=== PATIENT | male | born 1945 | race Caucasian/White ===

== ENCOUNTER → 2019-02-10 | Outpatient (CLI) | payer MEDICARE, OTHER, SELFPAY | PROVIDERS: Family Provider Internal Medicine; Visit Provider Internal Medicine | DX: R06.09 Other forms of dyspnea (principal); R07.9 Chest pain, unspecified | CPT/HCPCS: 78452; 93017; A9500; J2785 ==

== ENCOUNTER 2019-02-25 11:00 | Outpatient (CLI) | payer MEDICARE, OTHER, SELFPAY ==
--- NOTE | 2019-02-25 11:04 | XRR_ITS ---
PROCEDURE INFORMATION: Exam: XR Abdomen, 1 View Exam date and time: 02/25/2019 11:06 AM Age: 73 years old Clinical indication: Condition or disease; Other: Left ureteral stone TECHNIQUE: Imaging protocol: XR of the abdomen. Views: Frontal supine view of the abdomen. 1 View. COMPARISON: CR XR KUB [id number] 01/13/2019 7:[address] Abdomen/Pelvis Renal 51346 01/07/2019 5:48:51 AM FINDINGS: Gastrointestinal tract: Unremarkable. No bowel dilation. Vasculature: Calcified phleboliths are present in the lower pelvis bilaterally. Bones/joints: Previous CT demonstrated LEFT ureteral calculus not specifically identified on this examination. No acute abnormality identified. XR/XR KUB [id number] IMPRESSION: No acute abdominal or pelvic abnormality identified.
--- NOTE | 2019-02-25 11:09 | US_ITS ---
WS: [id number] RENAL ULTRASOUND HISTORY: RENAL AND URETERIC CALCULUS COMPARISON: None available. TECHNIQUE: 2-D and color Doppler imaging of the kidney submitted. Right kidney: 9.3 cm x 4.7 cm x 4.9 cm. Low normal size RIGHT kidney. Echogenicity is equal to the aorta. No hydronephrosis or solid mass. Co rtical cyst lower pole measures 1.7 x 1.3 x 1.6 cm. Left kidney: 11.2 cm x 4.1 cm x 5.6 cm. Normal size kidney. Cortical cyst lower pole measures 1.5 x 1.5 x 1.6 cm. Mild increased echogenicity . No solid mass. Aorta: Normal. Urinary Bladder: Nondistended. US/US renal BI* [id number] IMPRESSION: 1. No hydronephrosis. 2. Low normal size RIGHT kidney as compared to the LEFT. 3. Small bilateral renal cysts as above. No calcifications identified.
== END 2019-02-25 11:01 | disposition home or self-care (01) ==
LOC: RAD 11:02
PROVIDERS: Family Provider Internal Medicine; PCP Internal Medicine; Visit Provider Urology
DX: N28.1 Cyst of kidney, acquired (principal)
CPT/HCPCS: 74018; 76770; 81001

== ENCOUNTER 2019-09-23 11:48 | Outpatient (CLI) | payer MEDICARE, OTHER, SELFPAY ==
--- NOTE | 2019-09-23 11:45 | MR_ITS ---
WS: [id number] MRI RIGHT SHOULDER NONCONTRAST TECHNIQUE: Sagittal T2, coronal T1, T2 and proton density imaging. Axial gradient PDE imaging. CLINICAL INFORMATION: M75.91 Shoulder lesion, unspecified, right shoulder COMPARISON: None. 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 Slight subacro mial spurring. Small amount of edema at the AC joint. High-grade full-thickness tear of the supraspin atus with retraction to the level of glenohumeral joint. Associated edema. Partial intrasubstance ins ertional tear involving the infraspinatus which appears intact. No retraction. Chronic thinning of th e infraspinatus with tendinopathy. Normal teres minor. Normal subscapularis. Normal biceps tendon in the bicipital groove. Degenerative fraying of the glenoid labrum. No gross visualized labral tears. Intra-articular biceps tendon appear s intact. Normal biceps labral anchor. Axial images are degraded due to patient motion. IMPRESSION: 1. High-grade full-thickness tear involving the supraspinatus with retraction of the tendon to the l evel of the glenohumeral joint. Soft tissue edema. 2. Partial intrasubstance insertional tear involving the infraspinatus with tendinopathy. Chronic th inning of the infraspinatus. 3. Normal subscapularis and teres minor. 4. Advanced degenerative arthritis AC joint with loss of the subacromial space.
== END 2019-09-23 11:49 | disposition home or self-care (01) ==
LOC: RADSHAW 11:58
PROVIDERS: PCP Internal Medicine; Visit Provider Internal Medicine
DX: M75.91 Shoulder lesion, unspecified, right shoulder (principal); R60.0 Localized edema; S46.811A Strain of other muscles, fascia and tendons at shoulder and upper arm level, right arm, initial encounter; M13.811 Other specified arthritis, right shoulder; X58.XXXA Exposure to other specified factors, initial encounter
CPT/HCPCS: 73221

== ENCOUNTER → 2019-11-09 11:26 | Outpatient (BNVA) | payer MEDICARE, OTHER, SELFPAY | PROVIDERS: PCP Internal Medicine; Visit Provider Nurse Practitioner Family | DX: Z20.828 Contact with and (suspected) exposure to other viral communicable diseases (principal) | CPT/HCPCS: 87635 ==

== ENCOUNTER → 2019-11-25 11:55 | Outpatient (BNVA) | payer MEDICARE, OTHER, SELFPAY | PROVIDERS: PCP Internal Medicine; Visit Provider Orthopaedic Surgery | DX: Z11.59 Encounter for screening for other viral diseases (principal) | CPT/HCPCS: 87635 ==

== ENCOUNTER 2019-11-30 05:34 | Day surgery (SDC) | payer MEDICARE, OTHER, SELFPAY ==
[2019-11-27 13:44] VITALS: BMI 26.4
[2019-11-30] VITALS (7 sets, daily range): BP systolic 125–156; BP diastolic 65–83; PULSE 65–75; RESP 16–18; TEMP 36.4–36.6; O2SAT 96–100
--- NOTE | 2019-11-30 06:01 | ECG_ITS ---
[facility] Test Date: 2019-11-30 Pat Name: Donald Marquez Department: Room: Gender: Male [place] Tender: : 1945 Requested By: Norma Dyson Order Number: [id number] Krista MD: Jamaal Valdes M.D. Measurements Intervals [place] Rate: 71 P: 39 AK: 163 QRS: -20 QRSD: 114 T: 17 QT: 367 QTc: 400 Interpretive Statements SINUS RHYTHM MODERATE INTRAVENTRICULAR CONDUCTION DELAY [110+ ms QRS DURATION] No previous ECG available for comparison Electronically Signed On 11-30-2019 21:38:06 CDT by Jamaal Valdes M.D. [id number]
[2019-11-30] MEDS: acetaminophen 500 mg Tablet 1000 MG PO (06:05)
[2019-11-30] MEDS: CELEcoxib 200 mg Capsule PO (06:06)
[2019-11-30] MEDS: sodium chloride 0.9% 1,000 ML 30 ML IV (06:06)
[2019-11-30] MEDS: gabapentin 300 mg Capsule PO (06:06)
--- NOTE | 2019-11-30 06:33 | ANES.PREANE2 ---
Pre-Anesthetic Assessment Pre-Anesthetic Assessment: Height/Weight: Height 1.83 m Weight 88.451 kg Temp Pulse Resp BP Pulse Ox 97.8 F 75 18 156/83 97 11/30/19 06:00 11/30/19 06:00 11/30/19 06:00 11/30/19 06:00 11/30/19 06:00 Preop Diagnosis: Right rotator cuff tear Proposed Procedure: Operation Date: 11/30/19 07:00 Proposed Procedures p Shoulder Arthroscopy 09513 [id number] M75.101(Right) - Arpan Morton MD s Rotator Cuff Repair(Right) - Arpan Morton MD s subacromial Decompression and other indicated procedures(Right) - Arpan Morton MD Familial anesthetic complications: None Was Beta Pj taken within 24 hours: N/A Last intake: Intake NPO > 8 hrs Last Liquid Date 11/29/19 Last Solid Date 11/29/19 Social: Social History: No alcohol and No tobacco Exam: Pre-Anes Outpt Exam: alert, oriented x 3, clear to auscultation bilaterally and regular rate & rhythm Airway: Cervical ROM: WNL MP: 2 Dentition: Chipped and Other (missing teeth, fake tooth) CV/HEM: CV/HEM: CAD (stents placed 2010 - just on aspirin) and HTN Comments: < 4 METS achievable - experiences SOB Stress test last 2018 was negative for ischemia - test was performed d/t chronic fatigue GI: GI: GERD Neuropsych: 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) Anesthetic Plan: ASA status: 3 Anesthesia: General and Regional (specify below) Risk of > 500 ml blood loss (7ml/kg in children): No Meds/Allergies Current Medications: Current Medications Generic Name Dose Route Start Last Admin Trade Name Freq PRN Reason Stop Dose Admin Gabapentin 300 mg 11/30/19 05:45 11/30/19 06:06 Neurontin PO 300 mg ONCE EZRA Administration Sodium Chloride 1,000 mls @ 30 ml s/hr 11/30/19 05:45 11/30/19 06:06 Sodium Chloride 0.9% IV 12/01/19 05:44 30 mls/hr .Q24H EZRA Administration PFSH Anesthesia PFSH: Medical History ASHD (arteriosclerotic heart disease) Chronic fatigue GERD (gastroesophageal reflux disease) Hyperlipemia [place], old Renal and ureteric calculus Multi-stone former with small bilateral renal calculi and history of multiple spontaneous stone passages. Surgical History H/O percutaneous transluminal coronary angioplasty S/P colonoscopy S/P eye surgery S/P tonsillectomy Family History Other Congestive heart failure Diabetes Stroke Social History Smoking and tobacco status: former smoker Alcohol intake: never Household members: spouse Housing: House Marital status: History of recent travel: No Data Anesthesia Cardiac Studies: No Data to Display
[2019-11-30] MEDS: midazolam 1 mg/mL INJ 2 mL 2 MG IVP (06:52)
--- NOTE | 2019-11-30 06:57 | ANES.PROC ---
Anesthesia Procedures Procedure/Date: 11/30/19 Nerve Block ^: Nerve Block 1: Main Anesthesia: general anesthesia Time Out Performed: Yes Consent: requested by attending/covering physician, from patient, risks and benefits reviewed and patient agrees to proceed Nerve block location: interscalene (R) Anesthesia monitors applied: pulse oximetry, EKG and BP cuff Nerve block position: semi sitting Anesthetic Used: ropivicaine 0.5% and with decadron (4 mg) Amount of anesthesia used (mL): 20 Ultrasound used to: recognize landmarks, visualize and ID brachial plexus and visualize and ID interscalene groove Nerve Stimulator Used?: No Interscalene/Femoral BLK: 2 stimuplex 22 g needle used for position and inplane approach, visualize local anesthetic spread and no vascular puncture identified Injection: neg aspiration of heme and paresthesia +/- Patient Tolerated Procedure: well and no complications Complications: none
--- NOTE | 2019-11-30 07:05 | P.HPUD_ITS ---
Surgery/Procedure H&P Update DATE OF PROCEDURE: November 30, 2019 DATE H&P PERFORMED: 11/25/19 PREOP DIAGNOSIS: Right rotator cuff tear PLANNED PROCEDURE: Operation Date: 11/30/19 07:00 Proposed Procedures p Shoulder Arthroscopy 85337 41761 M75.101(Right) - MD sarita Ching Rotator Cuff Repair(Right) - MD sarita Ching subacromial Decompression and other indicated procedures(Right) - Arpan lorenzo MD
--- NOTE | 2019-11-30 07:05 | W.PM.OPSUD ---
Surgery/Procedure H&P Update DATE OF PROCEDURE: November 30, 2019 DATE H&P PERFORMED: 11/25/19 PREOP DIAGNOSIS: Right rotator cuff tear PLANNED PROCEDURE: Operation Date: 11/30/19 07:00 Proposed Procedures p Shoulder Arthroscopy 83917 07831 M75.101(Right) - Arpan Morton MD s Rotator Cuff Repair(Right) - MD sarita Ching subacromial Decompression and other indicated procedures(Right) - Arpan Morton MD
--- NOTE | 2019-11-30 07:54 | SUR.OPER ---
Pt's left hip/buttock area bruised. Pt stated he had fell. 0017 - Pt's Vicky notified of surgery start on her cell phone.
--- NOTE | 2019-11-30 08:59 | P.OP_ITS ---
Operative Report Date of procedure: November 30, 2019 Pre-op Diagnosis: Right rotator cuff tear Post-op diagnosis: same Post-op Findings: Right rotator cuff tear, impingement Procedure Done: Arthroscopic repair right rotator cuff, arthroscopic right subacromial decompression Implants: Martinez [employer]hew Helicoil 4.5 mm anchors x2, [employer] Helicoil knotless 5.0 mm anchors x2 Pathology: none sent Surgeon: Arpan Morton Anesthesia: General and Nerve Block (Interscalene) Estimated blood loss (mL): 10 Complications: None Findings: Patient had a large tear of the supraspinatus tendon beginning at the bicipital groove extending approximately 2 cm posteriorly with approximately 2 cm of tendinous retraction. Bone and tendon quality was excellent. Had prominent anterior spurring of his acromion. No degenerative changes were seen at the acromioclavicular joint. Disposition: PACU Procedure: The patient was taken to the operating room after an interscalene block was provided by anesthesia. He was given 2 g of Ancef and positioned the lateral position with his right arm in 15 pounds of traction. He was prepped and draped in the usual fashion. A timeout was performed. A posterior portal was made 2 cm inferior and medial to the posterior corner of the acromion. A scope cannula and trocar driven into the glenohumeral joint. Diagnostic portion of arthroscopy was performed. The rotator cuff tear identified. They scope cannula was then directed to the subacromial space. A lateral and anterior portal was opened up with a scalpel blade. Patient had a very tight subacromial space that made visualization difficult owing to anterior spurs. A 5 5 acromionizer was introduced and approximately 5 mm of anterior and inferior acromion removed. Hemostasis was provided with the Martinez [employer] Nephew Werewolf probe. Attention was then focused on the rotator cuff. Utilizing a grasper from the lateral portal the rotator cuff could be mobilized to the tuberosity and decision was made to proceed with a double row repair. An acromion urgency was used to debride the greater tuberosity. A 4.5 mm Martinez [employer] Nephew Helicoil anchor was placed in the posterior medial footprint. The Martinez and Nephew FirstPass suture passer was used to shuttle one limb of Ultratape fluoroscopy the posterior medial rotator cuff approximately 6 mm from the tendon edge. This was repeated approximately 5 mm anteriorly with the second to the tape. A second anchor was placed in the anterior medial footprint and the 2 Ultratape sutures passed in an identical fashion. Through the lateral cannula a helical oil knotless anchor was placed on the lateral edge of the footprint just post erior to the first anchor. One suture from each medial row anchor was passed into the anchor and that implant placed. The 2 free sutures were then passed through a anterior and lateral Martinez [employer] Nephew Helicoil knotless anchor, completing the lateral row repair. As tendon and bone quality was very good a bio inductive implant was not utilized. Portals were closed with 3-0 Prolene. Sterile dressings were applied. The patient was placed in a sling. He was extubated and taken to recovery room in stable condition.
--- NOTE | 2019-11-30 10:15 | ANE.PACU2 ---
Inpatient post-anesthesia follow up: Airway intact: Yes Vital signs: Temperature 97.6 F Pulse Rate 68 Respiratory Rate 18 Blood Pressure 127/67 Pulse Oximetry 97 Oxygen Delivery Me thod Room Air Oxygen Flow Rate 8 Fraction of Inspir ed Oxygen Hydration adequate: Yes Nausea and vomiting: No Pain level: 1 Mental status: Baseline
== END 2019-11-30 10:15 | disposition home or self-care (01) ==
PROVIDERS: PCP Internal Medicine; Visit Provider Orthopaedic Surgery
PROC: (CPT 29805; principal; 2019-11-30 07:00)
PROC: (CPT 29826; 2019-11-30 07:00)
DX: M75.101 Unspecified rotator cuff tear or rupture of right shoulder, not specified as traumatic (principal); M25.811 Other specified joint disorders, right shoulder; I25.10 Atherosclerotic heart disease of native coronary artery without angina pectoris; Z95.5 Presence of coronary angioplasty implant and graft; I10 Essential (primary) hypertension; K21.9 Gastro-esophageal reflux disease without esophagitis; Z86.73 Personal history of transient ischemic attack (TIA), and cerebral infarction without residual deficits; E78.5 Hyperlipidemia, unspecified; I25.2 Old myocardial infarction; Z87.891 Personal history of nicotine dependence; Z79.82 Long term (current) use of aspirin
CPT/HCPCS: 29826; 29827; 12345; 64415; 76942; 93005; 96365; 96374; C1713; J0690; J1100; J2250; J2405; J2704; J2710; J2795; J3010; J3490; J7030

== ENCOUNTER 2019-12-21 10:36 | Outpatient (RCR) | payer MEDICARE, OTHER, SELFPAY | END 2020-01-11 23:59 | disposition home or self-care (01) | LOC: SPT 10:36 | PROVIDERS: PCP Internal Medicine; Referring Provider Orthopaedic Surgery; Visit Provider Orthopaedic Surgery | DX: Z47.89 Encounter for other orthopedic aftercare (principal); Z98.890 Other specified postprocedural states | CPT/HCPCS: 97110; 97161 ==

== ENCOUNTER 2020-01-12 06:00 | Outpatient (RCR) | payer MEDICARE, OTHER, SELFPAY | END 2020-02-11 23:59 | disposition home or self-care (01) | LOC: SPT 06:00 | PROVIDERS: PCP Internal Medicine; Referring Provider Orthopaedic Surgery; Visit Provider Orthopaedic Surgery | DX: Z47.89 Encounter for other orthopedic aftercare (principal) | CPT/HCPCS: 97110 ==

== ENCOUNTER 2020-02-12 06:00 | Outpatient (RCR) | payer MEDICARE, OTHER, SELFPAY | END 2020-03-13 23:59 | disposition home or self-care (01) | LOC: SPT 06:00 | PROVIDERS: PCP Internal Medicine; Referring Provider Orthopaedic Surgery; Visit Provider Orthopaedic Surgery | DX: Z47.89 Encounter for other orthopedic aftercare (principal) | CPT/HCPCS: 97110 ==

== ENCOUNTER 2020-02-24 08:07 | Outpatient (CLI) | payer MEDICARE, OTHER, SELFPAY ==
--- NOTE | 2020-02-24 08:30 | XR_ITS ---
WS: [id number] KUB, 02/24/2020 Clinical Data: RENAL AND URETERIC CALCULUS Comparison: KUB, 02/25/2019. Findings: No abnormal intraabdominal masses or calcifications are seen. There is no dilatated small bowel or ev idence of obstruction. There is fecal material throughout colon. The bladder is partly full. XR/XR KUB [id number] Impression: Negative KUB.
== END 2020-02-24 08:08 | disposition home or self-care (01) ==
LOC: RAD 08:12
PROVIDERS: PCP Internal Medicine; Visit Provider Nurse Practitioner Family
DX: N20.2 Calculus of kidney with calculus of ureter (principal)
CPT/HCPCS: 74018; 81003

== ENCOUNTER 2020-03-14 06:00 | Outpatient (RCR) | payer MEDICARE, OTHER, SELFPAY | END 2020-04-10 23:59 | disposition home or self-care (01) | LOC: SPT 06:00 | PROVIDERS: PCP Internal Medicine; Referring Provider Orthopaedic Surgery; Visit Provider Orthopaedic Surgery | DX: Z48.89 Encounter for other specified surgical aftercare (principal) | CPT/HCPCS: 97110 ==

== ENCOUNTER 2020-04-11 06:00 | Outpatient (RCR) | payer MEDICARE, OTHER, SELFPAY | END 2020-04-19 15:54 | disposition home or self-care (01) | LOC: SPT 06:00 | PROVIDERS: PCP Internal Medicine; Referring Provider Orthopaedic Surgery; Visit Provider Orthopaedic Surgery | DX: Z47.89 Encounter for other orthopedic aftercare (principal) | CPT/HCPCS: 97110 ==

== ENCOUNTER 2020-05-12 15:09 | Outpatient (CLI) | payer MEDICARE, OTHER, SELFPAY ==
--- NOTE | 2020-05-12 15:45 | USCV_ITS ---
Donald Marquez Age: 74 Gender: M : 1945 Exam Date: 05/12/2020 15:40 Ordering Phys: Sandro Melo M.D ([email or web address]) Technologist: Katharina Strauss Exam Location: [facility] [place] Indication: SHORTNESS OF BREATH BP: 162 / 85 HR: 74 Rhythm: Sinus Technical Quality: Adequate MEASUREMENTS (Male / Female) Normal Values 2D ECHO LV Diastolic Diameter PLAX 4.0 cm 4.2 - 5.9 / 3.9 - 5.3 cm LV Systolic Diameter PLAX 3.2 cm IVS Diastolic Thickness 1.9 cm 0.6 - 1.0 / 0.6 - 0.9 cm IVS Systolic Thickness 2.6 cm LVPW Diastolic Thickness 1.7 cm 0.6 - 1.0 / 0.6 - 0.9 cm LVPW Systolic Thickness 2.4 cm RV Chamber Size 3.4 cm LV Ejection Fraction 2D Teich 34.7 % LV Ejection Fraction MOD 2C 67.7 % LV Ejection Fraction 2C AL 69.5 % LA Diameter 3.3 cm LA Width 4.0 cm LA Height 5.5 cm RA Width 3.2 cm RA Height 5.6 cm Aorta at Sinotubular Diameter 2.9 cm M-MODE LV Diastolic Diameter MM 5.8 cm 4.2 - 5.9 / 3.9 - 5.3 cm LV Systolic Diameter MM 3.9 cm LV Ejection Fraction MM Teich 61.2 % IVS Diastolic Thickness MM 1.8 cm 0.6 - 1.0 / 0.6 - 0.9 cm IVS Systolic Thickness MM 2.9 cm LVPW Diastolic Thickness MM 1.7 cm 0.6 - 1.0 / 0.6 - 0.9 cm LVPW Systolic Thickness MM 2.5 cm Aortic Annulus Diameter 3.3 cm LA Ao Ratio MM 0.9 MV E Point Septal Separation 0.3 cm DOPPLER AV Peak Velocity 142.0 cm/s LVOT Peak Velocity 100.0 cm/s MV Area PHT 3.9 cm squared Mitral E to A Ratio 1.0 MV E' Velocity 43.5 cm/s Mitral E to MV E' Ratio 8.2 Mitral E to LV E' Lateral Ratio 7.0 Mitral E to LV E' Septal Ratio 9.8 TR Peak Velocity 293.0 cm/s TR Peak Gradient 34.3 mmHg Right Atrial Pressure 3.0 mmHg Pulmonary Artery Systolic Pressu 37.3 mmHg PV Peak Velocity 116.0 cm/s RV Acceleration Time 0.1 s RV Ejection Time 0.3 s RV AcT/ET 0.3 FINDINGS Left Ventricle Normal left ventricular size,. LVsystolic function is normal with EF of 55-60%.No regional wall motion abnormalities. Normal diastolic function Right Ventricle The right ventricle is normal in size and function. Right Atrium The right atrium is normal in size. Left Atrium The left atrium is enlarged Mitral Valve Structurally normal mitral valve without significant stenosis or prolapse. There is mild mitral regurgitation. Aortic Valve Structurally normal aortic valve without significant sclerosis or stenosis. There is no aortic regurgitation. Tricuspid Valve Structurally normal tricuspid valve without significant stenosis or regurgitation. Insufficient TR jet to calculate RVSP Pulmonic Valve Structurally normal pulmonic valve without significant stenosis. There is trace pulmonic regurgitation. Pericardium Normal pericardium without effusion. Aorta Normal ascending aorta dimension. CONCLUSIONS LV systolic function is normal with EF of 55-60% Normal diastolic function Left atrium is enlarged Mild mitral regurgitation Trace pulmonic regurgitation Compared to prior echocardiogram from 03/15/2017 no significant changes are noted Sandro Melo MD (Electronically Signed) Final Date: 22 May 2020 22:35 S
== END 2020-05-12 15:10 | disposition home or self-care (01) ==
LOC: US 15:12
PROVIDERS: PCP Internal Medicine; Visit Provider Internal Medicine
DX: R06.02 Shortness of breath (principal); I34.0 Nonrheumatic mitral (valve) insufficiency
CPT/HCPCS: 93306

== ENCOUNTER → 2020-10-26 14:42 | Outpatient (BNVA) | payer MEDICARE, OTHER, SELFPAY | PROVIDERS: PCP Internal Medicine; Visit Provider Internal Medicine | DX: Z12.11 Encounter for screening for malignant neoplasm of colon (principal); Z20.822 Contact with and (suspected) exposure to COVID-19 | CPT/HCPCS: 87635 ==

== ENCOUNTER 2020-10-31 07:25 | Day surgery (SDC) | payer MEDICARE, OTHER, SELFPAY ==
[2020-10-27 15:58] VITALS: BMI 24.4
[2020-10-31 08:02] VITALS: BP 132/76; PULSE 73; RESP 16; TEMP 36.3; O2SAT 97
[2020-10-31] MEDS: sodium chloride 0.9% 1,000 ML 30 ML IV (08:11)
--- NOTE | 2020-10-31 08:20 | ANES.PREANE2 ---
Pre-Anesthetic Assessment Pre-Anesthetic Assessment: Height/Weight: Height 1.85 m Weight 83.915 kg Temp Pulse Resp BP Pulse Ox 97.4 F L 73 16 132/76 97 10/31/20 08:02 10/31/20 08:02 10/31/20 08:02 10/31/20 08:02 10/31/20 08:02 Preop Diagnosis: Right rotator cuff tear Proposed Procedure: Operation Date: 10/31/20 09:00 Proposed Procedures p Colonoscopy 41721 Z12.11(Not Applicable) - Selwyn Wooten MD Was Beta Pj taken within 24 hours: N/A Was Clonidine taken within 24 hours: N/A Last intake: Intake Last Liquid Date 10/30/20 Last Liquid Time 23:00 Last Solid Date 10/29/20 Last Solid Time 20:00 Social: Social History: No alcohol and No tobacco Exam: Pre-Anes Outpt Exam: alert, oriented x 3, clear to auscultation bilaterally and regular rate & rhythm Airway: Submandibular: WNL Cervical ROM: WNL MP: 2 Dentition: Chipped Additional comments: Poor dentition, missing several, chipped/cracked CV/HEM: CV/HEM: CAD, HTN and [place] GI: GI: GERD Metabolic: Metabolic: Hyperlipidemia Anesthetic Plan: ASA status: 3 Anesthesia: MAC Risk of > 500 ml blood loss (7ml/kg in children): No Meds/Allergies Current Medications: Current Medications Generic Name Dose Route Start Last Admin Trade Name Freq PRN Reason Stop Dose Admin Sodium Chloride 1,000 mls @ 30 ml s/hr 10/31/20 07:45 10/31/20 08:11 Sodium Chloride 0.9% IV 11/01/20 07:44 30 mls/hr .Q24H EZRA Administration PFSH Anesthesia PFSH: Medical History (Updated 04/25/20 @ 22:02 by Sandro Melo M.D) ASHD (arteriosclerotic heart disease) Chronic fatigue GERD (gastroesophageal reflux disease) Hyperlipemia [place], old Renal and ureteric calculus Multi-stone former with small bilateral renal calculi and history of multiple spontaneous stone passages. Surgical History H/O percutaneous transluminal coronary angioplasty S/P colonoscopy S/P eye surgery S/P tonsillectomy Family History Other Congestive heart failure Diabetes Stroke Social History Smoking and tobacco status: former smoker Alcohol intake: never Household members: spouse Housing: House Marital status: History of recent travel: No Data Anesthesia Cardiac Studies: No Data to Display
--- NOTE | 2020-10-31 08:57 | P.HP_ITS ---
Same Day Surgery H&P Indication for Procedure/HPI DATE OF PROCEDURE: October 31, 2020 CHIEF COMPLAINT/INDICATIONFOR SURGICAL PROCEDURE: History of colon polyps PREOP DIAGNOSIS: History of colon polyps PLANNED PROCEDRUE: Operation Date: 10/31/20 09:00 Proposed Procedures p Colonoscopy 29742 Z12.11(Not Applicable) - Selwyn Wooten MD Medications/Allergies* Home Medications Medication Instructions Recorded Confirmed Type ascorbic acid (vitamin C) 1,000 mg 1 gm PO ONCE tab 02/18/19 10/31/20 History tablet latanoprost 0.005 % eye drops 1 drop OPHTHALMIC (EYE) DAILY 02/18/19 10/31/20 History aspirin 81 mg tablet,delayed 81 mg PO DAILY 04/21/19 10/31/20 History release multivitamin,pu-iazl-zgveqyde 1 tab PO BID 04/21/19 10/31/20 History omega-3 fatty acids 1,000 mg 1,000 mg PO BID 04/21/19 10/31/20 History capsule omeprazole 40 mg capsule,delayed 20 mg PO BID 04/21/19 10/31/20 History release vitamin B complex 1 tab PO BID 04/21/19 10/27/20 History timolol 0.5 % eye drops 1 drop OPHTHALMIC (EYE) BID 10/23/19 10/27/20 History magnesium 30 mg PO DAILY 11/30/19 10/31/20 History cholecalciferol (vitamin D3) 50 50 mcg PO DAILY 02/24/20 10/31/20 History mcg (2,000 unit) capsule Allergies/Adverse Reactions Allergy/AdvReac Type Severity Reaction Status Date / Time No Known Allergies Allergy Verified 10/27/20 15:59 Current Medications: Generic Name Dose Route Start Last Admin Trade Name Freq PRN Reason Stop Dose Admin Sodium Chloride 1,000 mls @ 30 mls/hr 10/31/20 07:45 10/31/20 08:11 Sodium Chloride 0.9% IV 11/01/20 07:44 30 mls/hr .Q24H EZRA Administration Pertinent History/Comorbid Conditions* Medical History (Updated 04/25/20 @ 22:02 by Sandro Melo M.D) ASHD (arteriosclerotic heart disease) Chronic fatigue GERD (gastroesophageal reflux disease) Hyperlipemia [place], old Renal and ureteric calculus Multi-stone former with small bilateral renal calculi and history of multiple spontaneous stone passages. Surgical History (Updated 04/21/19 @ 15:59 by Lance Crystal MD) H/O percutaneous transluminal coronary angioplasty S/P colonoscopy S/P eye surgery S/P tonsillectomy Family History (Updated 02/18/19 @ 16:33 by Justine Perkins LPN) Diabetes Congestive heart failure Stroke Social History Smoking and tobacco status: former smoker Alcohol intake: never Household members: spouse Housing: House Marital status: History of recent travel: No Pertinent Exam Findings alert, oriented x 3, clear to auscultation bilaterally, regular rate & rhythm, operative site marked and procedure specific exam findings Recommendations Surgery/Procedure today Coding Level of Care Code Acute Endocrinologist for Edmundo Pryor
[2020-10-31 09:20] VITALS: BP 116/66; PULSE 63; RESP 16; TEMP 36.2; O2SAT 99
[2020-10-31 09:34] VITALS: BP 136/77; PULSE 71; RESP 16; O2SAT 98
--- NOTE | 2020-10-31 15:32 | ANE.PACU2 ---
Inpatient post-anesthesia follow up: Airway intact: Yes Vital signs: Temperature 97.2 F Pulse Rate 71 Respiratory Rate 16 Blood Pressure 136/77 Pulse Oximetry 98 Oxygen Delivery Me thod Room Air Oxygen Flow Rate Fraction of Inspir ed Oxygen Hydration adequate: Yes Nausea and vomiting: No Pain level: 1 Mental status: Baseline
== END 2020-10-31 10:37 | disposition home or self-care (01) ==
PROVIDERS: PCP Internal Medicine; Visit Provider Internal Medicine
PROC: 0DJD8ZZ Inspection of Lower Intestinal Tract, Via Natural or Artificial Opening Endoscopic (ICD-10-PCS; CPT 45378; principal; 2020-10-31 09:00)
DX: Z12.11 Encounter for screening for malignant neoplasm of colon (principal); K57.30 Diverticulosis of large intestine without perforation or abscess without bleeding; Z86.010 Personal history of colon polyps; I25.10 Atherosclerotic heart disease of native coronary artery without angina pectoris; Z79.82 Long term (current) use of aspirin; K21.9 Gastro-esophageal reflux disease without esophagitis; E78.5 Hyperlipidemia, unspecified; I25.2 Old myocardial infarction; Z82.49 Family history of ischemic heart disease and other diseases of the circulatory system; Z83.3 Family history of diabetes mellitus; Z82.3 Family history of stroke; Z87.891 Personal history of nicotine dependence
CPT/HCPCS: 45378; 96360; J2704; J7030

== ENCOUNTER 2020-12-28 06:51 | Outpatient (CLI) | payer MEDICARE, OTHER, SELFPAY ==
[2020-12-28 07:16] VITALS: BMI 24.4
--- NOTE | 2020-12-28 07:19 | NMCV_ITS ---
NM jessica perf SPECT r/s* [id number] Donald Marquez Age: 75 Gender: M : 1945 Exam Date: 12/28/2020 08:03 Ordering Phys: Sandro Melo M.D ([email or web address]) Technologist: JAVI Hernández Exam Location: [facility] Indications: HEART DISEASE STRESS TEST [facility] IMAGE PROTOCOL Rest/Stress 1 Lexiscan Day Radiopharmaceutical Dose (mCi) Administration Site Administered by Rest: Tc-99m 10.9 IV JAVI Lovell Sestamibi Stress:Tc-99m 32.9 IV JAVI Lovell Sestamibi Rest: 28-Dec-2020 60 Discovery 630 Stress: 28-Dec-2020 30 Discovery 630 0.4mg Lexiscan. Images obtained in supine and prone position. SPECT RESULTS Technical Quality: Excellent Raw Data Analysis: Normal Image Corrections: No attenuation or motion correction applied Summed Stress Score: 5 Summed Rest Score: 4 Summed Difference Score: 1 PERFUSION FINDINGS There is moderate sized, partially reversible perfusion defect noted in inferolateral wall. This is consistent with prior infarct with significant jayna-infarct ischemia. FUNCTIONAL RESULTS (calculated via Gated SPECT) Stress Image LV EF (%): 73 Stress EDV (mL):113 TID: 1 Stress ESV (mL):30 FUNCTIONAL FINDINGS: There is normal left ventricular systolic function. IMPRESSIONS 1. Abnormal myocardial perfusion imaging with prior infarct with significant jayna-infarct ischemia of inferolateral wall. Clinical correlation is required. 2. Normal LV systolic function Sandro Melo MD (Electronically Signed) Final Date: 29 December 2020 13:23 S
--- NOTE | 2020-12-28 07:19 | ECG_ITS ---
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 Interpretive Statements NAME OF STUDY: LEXISCAN SESTAMIBI STRESS TEST INDICATION: [ashd, ] Procedure: At the baseline, the blood pressure was 150/76 mmHg with a heart rate of 61 bpm. The electrocardiogram showed normal sinus rhythm, left axis deviation with T wave inversions in inferior leads. The Lexiscan was infused over a period of 20 seconds. A total of 0.4 mg of Lexiscan was infused. The stress phase was continued for a total of 5 minutes. Heart rate was at the end of stress phase was 70 bpm and a blood pressure of 129/59 mmHg. The EKG at the peak infusion revealed since normal sinus rhythm with no significant ST-T wave changes. Sestamibi was injected 20 seconds after the Lexiscan infusion. Blood pressure at the end of recovery phase was 135/61 mmHg with a heart rate of 70 bpm. Conclusion: 1. Normal EKG response to Lexiscan infusion 2. No Lexiscan induced chest pain or cardiac arrhythmia. 3. Normal blood pressure and heart rate response. 4. Sestamibi/sestamibi perfusion scan pending; see separate report. Electronically Signed On 02-04-2021 11:40:59 TAX COMMISSIONER by Sandro Melo M.D. [id number]
[2020-12-28] MEDS: regadenoson 0.4 Mg/5 ml Syringe IVP (08:43)
[2020-12-28 08:57] VITALS: BP 135/61; PULSE 70
== END 2020-12-28 06:52 | disposition home or self-care (01) ==
LOC: CDL 06:54
PROVIDERS: PCP Internal Medicine; Visit Provider Internal Medicine
DX: I25.10 Atherosclerotic heart disease of native coronary artery without angina pectoris (principal)
CPT/HCPCS: 78452; 93017; A9500; J2785

== ENCOUNTER 2021-03-13 18:42 | Emergency (ER) | payer MEDICARE, OTHER, SELFPAY ==
[2021-03-13 20:08] VITALS: BP 132/79; PULSE 110; RESP 18; TEMP 37; O2SAT 97; BMI 24.9
--- NOTE | 2021-03-13 21:36 | CTR_ITS ---
PROCEDURE INFORMATION: Exam: CT Abdomen And Pelvis Without Contrast Exam date and time: 03/13/2021 9:36 PM Age: 75 years old Clinical indication: Abdominal pain; Flank; Left; Additional info: Eval for stone. Left sided flank pain x 2 weeks TECHNIQUE: Imaging protocol: Computed tomography of the abdomen and pelvis without contrast. Radiation optimization: All CT scans at this facility use at least one of these dose optimization techniques: automated exposure control; mA and/or kV adjustment per patient size (includes targeted exams where dose is matched to clinical indication); or iterative reconstruction. COMPARISON: CT Abdomen/Pelvis Renal [id number] 01/07/2019 5:48 AM RADIATION DOSE METRICS: Total DLP (mGy-cm): 1133.48 FINDINGS: Lungs: Emphysematous changes. Heart: Cardiomegaly. Coronary artery atherosclerotic calcifications. Liver: Normal. No mass. Gallbladder and bile ducts: Cholelithiasis. Pancreas: Normal. No ductal dilation. Spleen: Splenic cyst, likely benign. Spleen enlarged to 14 cm. Adrenal glands: Normal. No mass. Kidneys and ureters: Left distal ureter 4.5 mm calculus with mild to moderate hydronephrosis and hydroureter. Bilateral punctate nonobstructing renal calyceal stones. Right kidney exophytic probable hyperdense renal cyst. Stomach and bowel: Diverticulosis without diverticulitis. Appendix: No evidence of appendicitis. Intraperitoneal space: Unremarkable. No free air. No significant fluid collection. 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 Lymph nodes: Unremarkable. No enlarged lymph nodes. Urinary bladder: Unremarkable as visualized. Reproductive: Unremarkable as visualized. Bones/joints: Unremarkable. No acute fracture. Soft tissues: Unremarkable. CT/CT kidney stone [id number] IMPRESSION: 1. Left distal ureter 4.5 mm calculus with mild to moderate hydronephrosis and hydroureter. 2. Splenic cyst, likely benign. 3. Diverticulosis without diverticulitis. 4. 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 5. Emphysematous changes. 6. Cardiomegaly. 7. Coronary artery atherosclerotic calcifications. 8. Cholelithiasis. 9. Spleen enlarged to 14 cm. 10. Bilateral punctate nonobstructing renal calyceal stones. 11. Right kidney exophytic probable hyperdense renal cyst. COMMENTS: Consistent with the [employer]'s Incidental Findings Committee white paper (J Am Gi Radiol 2018): Any incidental renal lesion less than 1 cm or classified as too small to characterize, or any incidental cystic renal lesion characterized as simple-appearing, is likely benign. No follow-up imaging is recommended for these lesions per consensus recommendations based on imaging criteria.
[2021-03-13 22:09] LABS: Add Urine Culture? Yes; Add Urine Microscopic? YES; Bacteria Urine TRACE /hpf; Bilirubin Urine Neg (Negative); Blood Urine 2+ (Negative); Glucose Urine UA Norm (Normal); Ketones Urine Negative (Negative); Leukocyte Esterase Urine Trace (Negative); Mucus Urine 1+ /hpf; Nitrate Urine Negative (Negative); Protein Urine Neg (Negative); RBC Urine 25-40 /hpf (0-2); Specific Gravity, Urine 1.025 (1.005-1.030); Squamous Epithelial Cell Urine 0-4 /hpf (0-5); Urine Appearance Clear (CLEAR); Urine Color Yellow (Yellow); Urobilinogen Urine Norm (Negative); WBC Urine 25-40 /hpf (0-5); pH Urine 5 (5-7)
--- NOTE | 2021-03-14 00:28 | W.ED.MALEGU ---
HPI - Male Genitourinary General: Chief complaint: Urogenital-Male Stated complaint: low back pain Time Seen by Provider: 03/14/21 00:19 History of Present Illness: Patient is a 75-year-old male who comes to the ED with left flank pain. Symptoms started approximately 3 days ago on Saturday. Today he woke up in the pain was worse and it was radiating down into his left groin. He rates the pain currently a 6 out of 10. He has a history of kidney stones and says that pain and symptoms are similar to his past kidney stones. He took hydrocodone at home before coming to the ED and it did help with the pain. Denies any nausea, vomiting or fevers. Associated symptoms: Deny dysuria, hematuria, nausea or vomiting Review of Systems Const: Denies: fever(s), chills or fatigue Eyes: Denies: change in vision or eye discomfort ENMT: Denies: throat pain, odynophagia, nasal discharge or nasal congestion Card: Denies: chest pain, palpitations, edema, swelling of feet/ankles, dyspnea on exertion or orthopnea Resp: Denies: dyspnea, productive cough or non-productive cough GI: Denies: abdominal pain, nausea, vomiting, diarrhea, constipation or hematochezia : Reports: flank pain (left flank); Denies: difficulty urinating, dysuria or hematuria Musc: Denies: neck pain, back pain or extremity swelling Skin/Breast: Denies: rash or new lesions Neuro: Denies: headache(s) PFS ED PFSH: Medical History ASHD (arteriosclerotic heart disease) Chronic fatigue GERD (gastroesophageal reflux disease) Hyperlipemia PR, old Renal and ureteric calculus Multi-stone former with small bilateral renal calculi and history of multiple spontaneous stone passages. Surgical History H/O percutaneous transluminal coronary angioplasty S/P colonoscopy S/P eye surgery S/P tonsillectomy Family History Other Congestive heart failure Diabetes Stroke Social History Smoking and tobacco status: former smoker Alcohol intake: never Household members: spouse Housing: House Marital status: History of recent travel: No Physical Exam Const: COMMON NORMALS: no acute distress, patient oriented x3, healthy appearing and alert GENERAL APPEARANCE: cooperative and comfortable HENMT: COMMON NORMALS: normocephalic HEAD & SCALP: normocephalic MOUTH: Normal oral and palatal mucosa present THROAT: posterior oropharynx normal and uvula midline Neck/C-Spine: COMMON NORMALS: supple GENERAL: Yes normal visual inspection Resp: COMMON NORMALS: normal respiratory effort, No retractions, No use of accessory muscles and clear to auscultation bilaterally AUSCULTATION: clear to auscultation bilaterally Cardio: COMMON NORMALS: regular rate, regular rhythm, S1 normal heart sound present, S2 normal heart sound present, No gallops present (Cardio), No clicks present (Cardio), No murmurs present (Cardio) and Peripheral pulses 2+ throughout RATE: regular rate RHYTHM: regular rhythm HEART SOUNDS: S1 normal heart sound present and S2 normal heart sound present PERIPHERAL PULSES: Peripheral pulses 2+ throughout GI: COMMON NORMALS: Normal to inspection, nondistended, normoactive bowel sounds present, Soft to palpation, non-tender and no masses PALPATION: Yes Soft to palpation : BLADDER/KIDNEY EXAM: Yes CVA tenderness on the left Back/Pelvis: GENERAL BACK: Yes CVA tenderness Extremity: COMMON NORMALS: normal to inspection Neuro: COMMON NORMALS: patient oriented x3 and moves all extremities SENSORIUM/ORIENTATION: Yes alert Skin: GENERAL SKIN EXAM: dry skin Course Vital Signs: Vital signs: Vital Signs Temperature 98.6 F 03/14/21 01:56 Pulse Rate 98 03/14/21 01:56 Respiratory Rate 18 03/14/21 01:56 Blood Pressure 135/75 03/14/21 01:56 Pulse Oximetry 98 03/14/21 01:56 MDM - Male Medical Decision Making Patient comes to the ED with left flank/left lower abdominal pain. He has a history of kidney stones and says this is similar to his past kidney stones. Denies any dysuria or hematuria, fever, nausea/vomiting. Vitals stable. Exam of patient shows a 75-year-old male in no acute distress or pain laying comfortably on exam bed monitor in the room. He has some mild left CVA tenderness but rest of exam is benign. His serum creatinine level is 1.8 today, but back in 2019 which are the most recent creatinine labs we have he was at 1.8 as well then. His UA shows some red blood cells with no signs of infection. The rest of his labs are unremarkable. CT of the abdomen shows a left distal ureter 4.5 mm obstructing kidney stone with some mild to moderate left hydronephrosis. Here in the ED patient was given some IV 0.5L fluids and Toradol to help with pain. I placed an order with case management for patient to be referred to Dr. Mccollum for follow-up. Patient diagnosed with left-sided kidney stone and discharged home with a prescription for tamsulosin, naproxen and hydrocodone for pain. Return to ED precautions given. He was told case management should contact in the next several days set up an appointment with Dr. Mccollum for further evaluation of kidney stone. I told him to have his creatinine levels rechecked at his PCP in the next 3 to 5 days. Patient understood agree with plan. Lab Data I reviewed the patient's lab results. : 03/14/21 00:40 03/14/21 00:40 Radiology Impressions Abdomen/Pelvis CT 03/13/21 21:36 IMPRESSION: 1. Left distal ureter 4.5 mm calculus with mild to moderate hydronephrosis and hydroureter. 2. Splenic cyst, likely benign. 3. Diverticulosis without diverticulitis. 4. 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 5. Emphysematous changes. 6. Cardiomegaly. 7. Coronary artery atherosclerotic calcifications. 8. Cholelithiasis. 9. Spleen enlarged to 14 cm. 10. Bilateral punctate nonobstructing renal calyceal stones. 11. Right kidney exophytic probable hyperdense renal cyst. COMMENTS: Consistent with the [employer]'s Incidental Findings Committee white paper (J Am Gi Radiol 2018): Any incidental renal lesion less than 1 cm or classified as too small to characterize, or any incidental cystic renal lesion characterized as simple-appearing, is likely benign. No follow-up imaging is recommended for these lesions per consensus recommendations based on imaging criteria. Laboratory Results WBC 10.2 10^3/uL (4.0-10.0) H 03/14/21 00:40 RBC 4.16 10^6/uL (4.1-5.3) 03/14/21 00:40 Hgb 12.7 g/dL (11.7-16.6) 03/14/21 00:40 Hct 38.3 % (42.0-52.0) L 03/14/21 00:40 MCV 92.1 fl (80-94) 03/14/21 00:40 MCH 30.5 pg (28.0-34.0) 03/14/21 00:40 MCHC 33.2 g/dL (30.0-36.0) 03/14/21 00:40 RDW 13.1 % (12.1-15.1) 03/14/21 00:40 Plt Count 150 10^3/cmm (130-400) 03/14/21 00:40 MPV 10.2 fL (7.4-10.4) 03/14/21 00:40 Neut % (Auto) 78.9 % 03/14/21 00:40 Lymph % (Auto) 14.3 % 03/14/21 00:40 [place] % (Auto) 5.9 % 03/14/21 00:40 Eos % (Auto) 0.4 % 03/14/21 00:40 Baso % (Auto) 0.2 % 03/14/21 00:40 Neut # (Auto) 8.09 10^3/uL (1.8-7.7) H 03/14/21 00:40 Lymph # (Auto) 1.5 10^3/uL (0.8-4.8) 03/14/21 00:40 [place] # (Auto) 0.6 10^3/uL (0.2-0.9) 03/14/21 00:40 Eos # (Auto) 0.0 10^3/uL (0.0-0.8) 03/14/21 00:40 Baso # (Auto) 0.0 10^3/uL (0.0-0.1) 03/14/21 00:40 Nucleated RBC % (auto) 0 % 03/14/21 00:40 Nucleated RBCs # 0.0 /100WBC 03/14/21 00:40 Sodium 135 mmol/L (136-145) L 03/14/21 00:40 Potassium 4.8 mmol/L (3.5-5.1) 03/14/21 00:40 Chloride 102 mmol/L (98-107) 03/14/21 00:40 Carbon Dioxide 24 mmol/L (22-29) 03/14/21 00:40 Anion Gap 13.8 (5-19) 03/14/21 00:40 BUN 27 mg/dL (8-23) H 03/14/21 00:40 Creatinine 1.8 mg/dL (0.7-1.2) H 03/14/21 00:40 GFR Calculation Not Reportable 03/14/21 00:40 Glucose 135 mg/dL (65-115) H 03/14/21 00:40 Calculated Osmolality 287 mOsm/kg (285-295) 03/14/21 00:40 Calcium 8.5 mg/dL (8.5-10.5) 03/14/21 00:40 Total Bilirubin 0.6 mg/dL (0.15-1.2) 03/14/21 00:40 AST 27 U/L (0-40) 03/14/21 00:40 ALT 12 U/L (0-41) 03/14/21 00:40 Alkaline Phosphatase 74 IU/L (40-130) 03/14/21 00:40 Total Protein 6.6 g/dL (6.6-8.7) 03/14/21 00:40 Albumin 4.1 g/dL (3.5-5.2) 03/14/21 00:40 Globulin 2.5 g/dL (1.3-4.6) 03/14/21 00:40 Urine Color Yellow (Yellow) 03/13/21 21:45 Urine Appearance Clear (CLEAR) 03/13/21 21:45 Urine pH 5 (5-7) 03/13/21 21:45 Ur Specific [place] 1.025 (1.005-1.030) 03/13/21 21:45 Urine Protein Neg (Negative) 03/13/21 21:45 Urine Glucose (UA) Norm (Normal) 03/13/21 21:45 Urine Ketones Negative (Negative) 03/13/21 21:45 Urine Blood 2+ (Negative) H 03/13/21 21:45 Urine Nitrate Negative (Negative) 03/13/21 21:45 Urine Bilirubin Neg (Negative) 03/13/21 21:45 Urine Urobilinogen Norm mg/dL (Negative) 03/13/21 21:45 Ur Leukocyte Esterase Trace (Negative) H 03/13/21 21:45 Urine RBC 25-40 /hpf (0-2) H 03/13/21 21:45 Urine WBC 25-40 /hpf (0-5) H 03/13/21 21:45 Ur Squamous Epith Cells 0-4 /hpf (0-5) H 03/13/21 21:45 Amorphous Sediment Not Reportable 03/13/21 21:45 Urine Bacteria Trace /hpf (NONE) 03/13/21 21:45 Urine Mucus 1+ /hpf 03/13/21 21:45 Discharge Plan Discharge Patient Disposition: Home Clinical Impression: Kidney stone on left side, Elevated serum creatinine Condition: Stable Prescriptions: New Naprosyn 500 mg tablet 500 mg PO BID PRN (Reason: pain) Qty: 20 0RF tamsulosin 0.4 mg capsule 0.4 mg PO DAILY Qty: 20 0RF Rx Instructions: Take daily until you pass kidney stone. No Action aspirin [Aspir-81] 81 mg tablet,delayed release (DR/EC) 81 mg PO DAILY 0RF omeprazole 40 mg capsule,delayed release(DR/EC) 20 mg PO BID 0RF omega-3 fatty acids [Fish Oil Concentrate] 1,000 mg capsule 1,000 mg PO BID 0RF vitamin B complex [B Complex-Vitamin B12] Tablet 1 tab PO BID 0RF Complete Multivitamin Tablet 1 tab PO BID 0RF latanoprost 0.005 % drops 1 drop ophthalmic (eye) DAILY 0RF ascorbic acid (vitamin C) 1,000 mg tablet 1 gm PO ONCE 0RF timolol 0.5 % drops 1 drop ophthalmic (eye) BID 0RF oxycodone-acetaminophen [Percocet] 5-325 mg tablet 1 tab PO Q4H PRN (Reason: pain) 7 Days Qty: 40 0RF cholecalciferol (vitamin D3) 50 mcg (2,000 unit) capsule 50 mcg PO DAILY 0RF ferrous sulfate [FeroSul] 325 mg (65 mg iron) tablet 325 mg PO DAILY 0RF atorvastatin 40 mg tablet 40 mg PO ONCE Qty: 90 3RF amlodipine 10 mg tablet 10 mg PO DAILY Qty: 90 3RF allopurinol 100 mg tablet 100 mg PO DAILY Qty: 30 3RF magnesium 30 mg Tablet 30 mg PO DAILY 0RF Discharge Orders: Discharge ED (Routine); Ordered 03/14/21 Ordered By: Balta Rizzo Referrals: Selwyn Wooten MD [Primary Care Provider] - Discharge Diet: Regular Discharge Activity: Increase activity as tolerated Patient Instructions: Kidney Stones (ED), How to Strain Your Urine (ED), Opioid Safety Activity Restrictions/Additional Instructions: Follow-up with medical provider as directed. Have your creatinine levels checked again at your primary care provider's office in the next 3 to 5 days. Case management should be contacting you in the next several days to set up an appointment with Dr. Mccollum the urologist. Strain urine to catch stone and drink lots of fluid to stay hydrated and help pass stone. Take medications as prescribed. Return to the ER or your medical provider if condition worsens. Please read and understand discharge instructions. If any questions, please ask. Coding Level of Care Code ED Electrical Tryout Person for Evelyng Fwd Exam Comprehensive
[2021-03-14 00:44] LABS: Basophils % 0.2 %; Eosinophils % 0.4 %; Hematocrit 38.3 % (42.0-52.0); Hemoglobin 12.7 g/dL (11.7-16.6); Lymphocytes # 1.5 10^3/uL (0.8-4.8); Lymphocytes % 14.3 %; Mean Corpuscular HGB Conc 33.2 g/dL (30.0-36.0); Mean Corpuscular Hemoglobin 30.5 pg (28.0-34.0); Mean Corpuscular Volume 92.1 fl (80-94); Mean Platelet Volume 10.2 fL (7.4-10.4); Monocytes # 0.6 10^3/uL (0.2-0.9); Monocytes % 5.9 %; Neutrophils # 8.09 10^3/uL (1.8-7.7); Neutrophils % 78.9 %; Nucleated Red Blood Cells % 0 %; Platelet Count 150 10^3/cmm (130-400); Red Blood Count 4.16 10^6/uL (4.1-5.3); Red Cell Distribution Width 13.1 % (12.1-15.1); White Blood Count 10.2 10^3/uL (4.0-10.0)
[2021-03-14] MEDS: tamsulosin 0.4 mg Capsule PO (00:54)
[2021-03-14] MEDS: ketorolac 30 mg/mL INJ IVP (00:54)
[2021-03-14 01:16] LABS: Alanine Aminotransferase 12 U/L (0-41); Albumin Level 4.1 g/dL (3.5-5.2); Alkaline Phosphatase 74 IU/L (40-130); Blood Urea Nitrogen 27 mg/dL (8-23); Calcium 8.5 mg/dL (8.5-10.5); Carbon Dioxide 24 mmol/L (22-29); Chloride 102 mmol/L (98-107); Globulin 2.5 g/dL (1.3-4.6); Glucose 135 mg/dL (65-115); Osmolality Calculated 287 mOsm/kg (285-295); Sodium 135 mmol/L (136-145); Total Bilirubin 0.6 mg/dL (0.15-1.2); Total Protein 6.6 g/dL (6.6-8.7)
[2021-03-14 01:19] LABS: Anion Gap 13.8 (5-19); Aspartate Amino Transferase 27 U/L (0-40); Potassium 4.8 mmol/L (3.5-5.1)
[2021-03-14] MEDS: sodium chloride 0.9% 500 ML 999 ML IV (01:35)
[2021-03-14] MEDS: HYDROcodone-acetaminophen 7.5-325 mg Tablet 1 TAB PO (01:51)
[2021-03-14 01:56] VITALS: BP 135/75; PULSE 98; RESP 18; TEMP 37; O2SAT 98
[2021-03-14 02:23] VITALS: BP 135/75; PULSE 98; RESP 18; TEMP 37; O2SAT 98
--- NOTE | 2021-03-14 07:54 | DCPLANNER ---
Addendum entered by Renetta Helton 03/17/21 13:11: Patient had a follow up appointment scheduled for 03.15.[address] Mccollum - patient did attend appointment. Original Note: manager office services had message to schedule a follow up appointment for patient with Dr. Mccollum. manager office services emailed patients information to Lenny Obrien and Leanne at the office of Dr. Mccollum. Patients information will be printed and reviewed. Clinic will call patient with appointment information.
== END 2021-03-14 02:11 | disposition home or self-care (01) ==
PROVIDERS: Emergency Medicine; Emergency Provider Physician Assistant; PCP Internal Medicine
DX: N20.0 Calculus of kidney (principal); R74.8 Abnormal levels of other serum enzymes; Z79.82 Long term (current) use of aspirin; E78.5 Hyperlipidemia, unspecified; I25.2 Old myocardial infarction; Z87.442 Personal history of urinary calculi; Z87.891 Personal history of nicotine dependence
CPT/HCPCS: 74176; 80053; 81001; 85025; 87086; 96374; 99283; J1885; J7040

== ENCOUNTER 2021-03-15 07:42 | Outpatient (CLI) | payer MEDICARE, OTHER, SELFPAY ==
--- NOTE | 2021-03-15 07:51 | XR_ITS ---
WS: [id number] XR KUB [id number] REASON FOR EXAM: KIDNEY STONE ON LEFT SIDE FINDINGS: CT scan 03/13/2021 demonstrates multiple small intrarenal calculi. These calculi are not readily ident ifiable on the KUB. No ureteral or bladder calculi are identified. No other significant abnormality. XR/XR KUB 30288 IMPRESSION: CT demonstrated calculi are not identifiable on the plain film.
== END 2021-03-15 07:43 | disposition home or self-care (01) ==
PROVIDERS: PCP Internal Medicine; Visit Provider Urology
DX: N20.0 Calculus of kidney (principal)
CPT/HCPCS: 74018; 80053; 81003

== ENCOUNTER 2021-03-20 10:16 | Outpatient (CLI) | payer MEDICARE, OTHER, SELFPAY ==
--- NOTE | 2021-03-20 10:33 | XR_ITS ---
WS: [id number] XR KUB 22314 REASON FOR EXAM: RENAL AND URETERIC CALCULUS FINDINGS: CT scan 03/13/2021 demonstrated multiple small intrarenal calculi and a distal left ureteral calculus with left obstructive uropathy. Urinary tract calculi not readily identifiable on the previous KUB of 2 03/15/2021. However, in retrospect there may be a distal left ureteral calculus overlying a phleboli th at the level of the inferior iliac on the previous examination and unchanged and present on the cu rrent examination. 2 of the right intrarenal calculi seen on the previous CT scan are identified on the current examinat ion. XR/XR KUB 44336 IMPRESSION: There may be a retained calculus in the distal left ureter as above.
== END 2021-03-20 10:17 | disposition home or self-care (01) ==
LOC: LAB 10:30 → RAD 10:33
PROVIDERS: PCP Internal Medicine; Visit Provider Urology
DX: N20.2 Calculus of kidney with calculus of ureter (principal); N20.0 Calculus of kidney; R79.89 Other specified abnormal findings of blood chemistry; E78.5 Hyperlipidemia, unspecified
CPT/HCPCS: 36415; 74018; 80048; 81003

== ENCOUNTER 2021-03-20 12:34 | Outpatient (CLI) | payer MEDICARE, OTHER, SELFPAY ==
[2021-03-20 13:48] LABS: Blood Urea Nitrogen 18 mg/dL (8-23); Calcium 9.8 mg/dL (8.5-10.5); Carbon Dioxide 25 mmol/L (22-29)
[2021-03-20 13:54] LABS: Anion Gap 17.2 (5-19); Chloride 105 mmol/L (98-107); Sodium 142 mmol/L (136-145)
[2021-03-20 14:12] LABS: Glucose 129 mg/dL (65-115); Osmolality Calculated 298 mOsm/kg (285-295); Potassium 5.2 mmol/L (3.5-5.1)
== END 2021-03-20 12:35 | disposition home or self-care (01) ==
PROVIDERS: PCP Internal Medicine; Visit Provider Urology
DX: N20.0 Calculus of kidney (principal); R79.89 Other specified abnormal findings of blood chemistry; E78.5 Hyperlipidemia, unspecified
CPT/HCPCS: 36415; 80048

== ENCOUNTER → 2021-03-21 10:57 | Outpatient (BNVA) | payer MEDICARE, OTHER, SELFPAY | PROVIDERS: PCP Internal Medicine; Visit Provider Nurse Practitioner Family | DX: N20.2 Calculus of kidney with calculus of ureter (principal) | CPT/HCPCS: 87635 ==

== ENCOUNTER 2021-03-22 05:45 | Day surgery (SDC) | payer MEDICARE, OTHER, SELFPAY ==
[2021-03-21 08:43] VITALS: BMI 25.0
[2021-03-22] VITALS (9 sets, daily range): BP systolic 113–150; BP diastolic 46–78; PULSE 61–76; RESP 16–18; TEMP 36.2–36.9; O2SAT 93–100
--- NOTE | 2021-03-22 | SCC_ITS ---
Procedure done: 1. Cystoscopy with left retrograde ureteropyelogram 2. Left ureteroscopy with stone extraction, no laser 3. Left ureteral stent placement (7 Moroccan by 30 cm double-pigtail without string) 24.2 seconds of fluoroscopic guidance, for a cumulative dose of 4.6 mGy, was provided to Dr. Mccollum by the radiology department. C-arm images of the abdomen were saved for the patient's permanent record. [facility]
--- NOTE | 2021-03-22 | SCC_ITS ---
Procedure done: 1. Cystoscopy with left retrograde ureteropyelogram 2. Left ureterorenoscopy, laser lithotripsy, stent (6 [place] by 24 cm double-pigtail without string) 74.5 seconds of fluoroscopic guidance, for a cumulative dose of 36.20 mGy, was provided to Dr. Mccollum by the radiology department. C-arm images of the abdomen were saved for the patient's permanent record. [facility]
--- NOTE | 2021-03-22 05:54 | SC_ITS ---
WS: [id number] INTRAOPERATIVE TECHNIQUE: 4 Spot fluoroscopic images for intraoperative purposes. FLUOROSCOPY TIME: 24.2 seconds CLINICAL INFORMATION: Left ureteral calculi COMPARISON: None. FINDINGS: Partially visualized LEFT double-J ureteral stent. LEFT ureteroscopy. Calculus in the distal LEFT ureter with filling defect. SC/C-arm FL for Urology IMPRESSION: Images obtained for intraoperative purposes.
--- NOTE | 2021-03-22 06:08 | ECG_ITS ---
[facility] Test Date: 2021-03-22 Pat Name: Donald Marquez Department: Room: Gender: Male Polysomnography Tech: : 1945 Requested By: Fransisco Lea Order Number: [id number] Krista MD: Kristen Cruz M.D. Measurements Intervals [place] Rate: 72 P: 37 WA: 144 QRS: -14 QRSD: 100 T: 24 QT: 384 QTc: 422 Interpretive Statements SINUS RHYTHM Compared to ECG 11/30/2019 06:40:16 Intraventricular conduction delay no longer present Electronically Signed On 03-22-2021 19:46:11 ASSOCIATE STORE MANAGER by Kristen Cruz M.D. [id number]
[2021-03-22] MEDS: sodium chloride 0.9% 1,000 ML 30 ML IV (06:30)
--- NOTE | 2021-03-22 06:56 | P.HPUD_ITS ---
Surgery/Procedure H&P Update DATE OF PROCEDURE: March 22, 2021 DATE H&P PERFORMED: 03/20/21 H&P UPDATE INFORMATION: I have reviewed H&P completed within last 30 days, I have examined patient prior to procedure, No changes to prior documentation and H&P is in [facility] [place] on date indicated CHANGES TO PREVIOUS DOCUMENTATION: Still symptomatic. Has not passed the stone. His creatinine bumped up from 2.0-2.5 when it was drawn on the day of his H&P. His potassium had bumped up to 5.2. Based on this we elected to push the surgery forward rather than continue conservative management. This is considered an urgent procedure based on those data points. This was explained in detail to the patient. We also spoke with cardiology who also was concerned about his decreased renal function given his impending cardiac catheterization. Acknowledged risk of anesthesia and surgery somebody with concern for ischemic disease. PREOP DIAGNOSIS: Refractory left distal ureteral stone with acute kidney injury PRIMARY INDICATION FOR PROCEDURE: Refractory left distal ureteral stone. PLANNED PROCEDURE: Operation Date: 03/22/21 07:00 Proposed Procedures p [id number](Not Applicable) - Adeel Mccollum MD s Retrograde Pyelogram(Left) - Adeel Mccollum MD s Ureteroscopy(Left) - Adeel Mccollum MD s Laser Lithotripsy(Left) - Adeel Mccollum MD s Ureteral Stent Placement(Left) - Adeel Mccollum MD
[2021-03-22] MEDS: levofloxacin-dextrose 5 % 500 MG/100 ML PREMIX 100 MG IV (06:58)
--- NOTE | 2021-03-22 07:08 | ANES.PREANE2 ---
Pre-Anesthetic Assessment Height/Weight: Height 1.85 m Weight 86.183 kg Temp Pulse Resp BP Pulse Ox 98.2 F 76 18 150/64 93 03/22/21 06:13 03/22/21 06:13 03/22/21 06:13 03/22/21 06:13 03/22/21 06:13 Preop Diagnosis: Refractory left distal ureteral stone with acute kidney injury Operation Date: 03/22/21 07:00 Proposed Procedures p [id number](Not Applicable) - Adeel Mccollum MD s Retrograde Pyelogram(Left) - MD sarita Santos Ureteroscopy(Left) - MD sarita Santos Laser Lithotripsy(Left) - Adeel Mccollum MD s Ureteral Stent Placement(Left) - Adeel Mccollum MD Familial anesthetic complications: None Was Beta Pj taken within 24 hours: N/A Was Clonidine taken within 24 hours: N/A Last intake: Intake Last Liquid Date 03/21/21 Last Liquid Time 00:00 Last Solid Date 03/21/21 Last Solid Time 20:00 Social No alcohol and No tobacco Exam alert, oriented x 3, clear to auscultation bilaterally and regular rate & rhythm Airway Submandibular: within normal limits Cervical ROM: within normal limits Mallampati: Class II Dentition: chipped CV/HEM Coronary Artery Disease and Hypertension GI Gastroesophageal Reflux Disease Metabolic Hyperlipidemia [facility]/sk Gout Anesthetic Plan ASA status: 2 Anesthesia: General Risk of > 500 ml blood loss (7ml/kg in children): No Medications/Allergies Home Medications Medication Instructions Recorded Confirmed Last Taken Type ascorbic acid (vitamin C) 1,000 mg 1 gm PO ONCE tab 02/18/19 03/21/21 10/30/20 History tablet latanoprost 0.005 % eye drops 1 drop OPHTHALMIC (EYE) DAILY 02/18/19 03/21/21 10/30/20 History aspirin 81 mg tablet,delayed 81 mg PO DAILY 04/21/19 03/21/21 10/30/20 History release (Aspir-) omega-3 fatty acids 1,000 mg 1,000 mg PO BID 04/21/19 03/22/21 03/21/21 History capsule (Fish Oil Concentrate) omeprazole 40 mg capsule,delayed 20 mg PO BID 04/21/19 03/22/21 03/21/21 History release vitamin B complex (B 1 tab PO BID 04/21/19 03/22/21 03/21/21 History Complex-Vitamin B12) timolol 0.5 % eye drops 1 drop OPHTHALMIC (EYE) BID 10/23/19 03/22/21 03/21/21 History magnesium 30 mg tablet 30 mg PO DAILY 11/30/19 03/22/21 03/21/21 History cholecalciferol (vitamin D3) 50 50 mcg PO DAILY 02/24/20 03/21/21 10/30/20 History mcg (2,000 unit) capsule atorvastatin 40 mg tablet 40 mg PO ONCE #90 tab 10/14/20 03/21/21 Unknown Rx amlodipine 10 mg tablet 10 mg PO DAILY #90 tab 11/10/20 03/21/21 Unknown Rx ferrous sulfate 325 mg (65 mg 325 mg PO DAILY 11/10/20 03/21/21 Unknown History iron) tablet (FeroSul) naproxen 500 mg tablet (Naprosyn) 500 mg PO BID PRN #20 tab 03/14/21 03/22/21 03/21/21 Rx tamsulosin 0.4 mg capsule 0.4 mg PO DAILY #20 cap 03/14/21 03/22/21 03/21/21 Rx multivitamin,[id number] 1 tab PO BID tab 03/20/21 03/22/21 03/21/21 History (Complete Multivitamin) allopurinol 100 mg tablet 100 mg PO PRN 03/21/21 03/21/21 Unknown History brimonidine 0.2 % eye drops 1 drp OPHTHALMIC (EYE) TID 03/21/21 03/21/21 Unknown History Allergies Allergy/AdvReac Type Severity Reaction Status Date / Time No Known Allergies Allergy Verified 03/21/21 08:36 [facility] Anesthesia Medical History (Updated 03/22/21 @ 00:01 by ) ASHD (arteriosclerotic heart disease) Chronic fatigue GERD (gastroesophageal reflux disease) Hyperlipemia MT, old Renal and ureteric calculus Multi-stone former with small bilateral renal calculi and history of multiple spontaneous stone passages. Surgical History H/O percutaneous transluminal coronary angioplasty S/P colonoscopy S/P eye surgery S/P tonsillectomy Family History Father , AT AGE 89 Congestive heart failure Mother , AT 88 of unknown cause Other Diabetes Stroke Social History Smoking and tobacco status: never smoked Alcohol intake: never Marital status: Current occupational status: employed History of recent travel: No Data Anesthesia : 03/22/21 06:18 Cardiac Studies: Echocardiogram Ultrasound 05/12/20 Sestamibi Stress Test (Cardiology) 12/28/20
[2021-03-22 07:30] LABS: Blood Urea Nitrogen 22 mg/dL (8-23); Calcium 9.3 mg/dL (8.5-10.5); Carbon Dioxide 23 mmol/L (22-29); Chloride 103 mmol/L (98-107); Glucose 108 mg/dL (65-115); Osmolality Calculated 290 mOsm/kg (285-295); Sodium 138 mmol/L (136-145)
[2021-03-22 07:53] LABS: Anion Gap 16.8 (5-19); Potassium 4.8 mmol/L (3.5-5.1)
--- NOTE | 2021-03-22 08:04 | P.OP_ITS ---
Operative Report Date of procedure: March 22, 2021 Pre-op diagnosis: Preop Diagnosis Refractory left distal ureteral stone with acute kidney injury Post-op diagnosis: Refractory left distal ureteral stone with acute kidney injury Procedure done: 1. Cystoscopy with left retrograde ureteropyelogram 2. Left ureteroscopy with stone extraction, no laser 3. Left ureteral stent placement (7 Bangladeshi by 30 cm double-pigtail without string) Specimens removed/disposition: Left ureteral stone Pathology: Left ureteral stone Surgeon: Chun Estimated blood loss: Minimal Urine output: Not measured Complications: None Findings: Stone was in the expected position High-grade obstruction was demonstrated with large amount of inspissated fluid returned with passage of wire. There was a lot of inflammatory change where the stone had been impacted. Stent left indwelling with anticipation of maintaining for 2 weeks before isidro hilaria in the clinic Brief History: Donald is a very pleasant 75-year-old white male recently discovered to have a left distal ureteral stone with obstructive changes and intermittent symptoms. He has a baseline elevated creatinine of approximately 1.8. The hope was that he would be able to pass the stone spontaneously and not require treatment. Fur ther complicated by history of what appears to be cardiac ischemia and has a cardiac catheterization schedule. Was not having any active chest pain. Unfortunately his creatinine bumped up from his baseline of 1.8-2.0 and then 2.5 on follow-up. For that reason he was declared an urgent procedure and taken to the operating room today for stone retrieval possible laser. Procedure: After routine preoperative evaluation examination and obtaining of informed consent he was taken to the operating suite on 03/22/2021 where general anesthesia was administered without difficulty after appropriate timeout was performed, SCDs confirmed to be functioning, preoperative antibiotics administered, beta- sabrina protocol confirmed. Prepped and draped in usual sterile fashion in dorsolithotomy position paying careful attention to avoiding pressure points. 21 Bangladeshi cystoscope with 30 degree lens was introduced to the urethral meatus and advanced into the bladder without difficulty. No stones were seen in the bladder. The left ureteral orifice and intramural tunnel were inflamed. The right side was normal. An 8 Bangladeshi cone-tip catheter was intubated into the left ureteral orifice for left retrograde ureteropyelogram demonstrating: The stone was encountered in the distal ureter in its expected position. The ureter proximal to the stone was quite dilated. No other filling defects were seen. The pelvic calcification seen on CT scan to be a phlebolith was also identified outside of the ureter. A flexible tip guidewire was then passed easily up the left ureter bypassing the stone in the distal ureter was dilated with a 15 Bangladeshi 4 cm balloon with no waist at 4 eligio of pressure. The wire was secured to the drapes as a safety wire and then a 7 Bangladeshi offset semirigid ureteroscope was advanced up the left ureter next to the guidewire. The stone was encountered in its expected position. It was felt to be small enough to remove without tension and therefore 3 Bangladeshi grasping forceps was utilized to secure the stone and it was removed without difficulty. A second passage of the scope showed significant inflammatory/impaction type changes at the stones previous location site and for that reason it was decided to leave a stent indwelling. No other stones were seen. The ureter proximal to that inflamed area was normal although dilated. Cystoscope was then backloaded over the guidewire and a 7 Bangladeshi by 30 cm double-pigtail stent was advanced over the guidewire through the cystoscope into appropriate position as confirmed via fluoroscopy and cystoscopy. Stent was confirmed to be draining. Stone was sent for pathologic evaluation. Bladder was drained and the procedure was completed. He tolerated procedure well without complications and was awakened in the operating room and returned to recovery room in stable condition. PLANS: 1. Anticipate discharge from outpatient surgery 2. Follow-up in about 2 weeks for cystoscopy stent removal. He will not need another KUB. 3. We will need to focus on metabolic stone risk reduction strategies.
--- NOTE | 2021-03-22 10:23 | ANE.PACU2 ---
Inpatient post-anesthesia follow up: Airway intact: Yes Vital signs: Temperature 97.8 F Pulse Rate 61 Respiratory Rate 16 Blood Pressure 117/75 Pulse Oximetry 99 Oxygen Delivery Me thod Room Air Oxygen Flow Rate 6 Fraction of Inspir ed Oxygen Hydration adequate: Yes Nausea and vomiting: No Pain level: 2 Mental status: Baseline
[2021-03-26 22:48] LABS: Stone Source LEFT URETER
== END 2021-03-22 09:25 | disposition home or self-care (01) ==
PROVIDERS: PCP Internal Medicine; Visit Provider Urology
PROC: 0TJB8ZZ Inspection of Bladder, Via Natural or Artificial Opening Endoscopic (ICD-10-PCS; CPT 52000; principal; 2021-03-22 07:00)
PROC: (CPT 74420; 2021-03-22 07:00)
PROC: 0TJ98ZZ Inspection of Ureter, Via Natural or Artificial Opening Endoscopic (ICD-10-PCS; CPT 52351; 2021-03-22 07:00)
PROC: (CPT 50605; 2021-03-22 07:00)
PROC: (CPT 52332; 2021-03-22 07:00)
DX: N20.1 Calculus of ureter (principal); N17.9 Acute kidney failure, unspecified; I25.10 Atherosclerotic heart disease of native coronary artery without angina pectoris; I10 Essential (primary) hypertension; E78.5 Hyperlipidemia, unspecified; Z79.82 Long term (current) use of aspirin; I25.2 Old myocardial infarction
CPT/HCPCS: 52332; 52352; 36415; 76000; 80048; 82365; 88300; 93005; 96365; C2625; J1100; J1956; J2405; J2704; J2710; J3010; J3490; J7030

== ENCOUNTER → 2021-03-27 11:05 | Outpatient (BNVA) | payer MEDICARE, OTHER, SELFPAY | PROVIDERS: PCP Internal Medicine; Visit Provider Internal Medicine | DX: Z01.818 Encounter for other preprocedural examination (principal); E78.5 Hyperlipidemia, unspecified; I25.10 Atherosclerotic heart disease of native coronary artery without angina pectoris; Z20.822 Contact with and (suspected) exposure to COVID-19 | CPT/HCPCS: 80048; 85025; 85610; 87635 ==

== ENCOUNTER 2021-03-29 10:28 | Observation (INO) | payer MEDICARE, OTHER, SELFPAY ==
[2021-03-29] VITALS (66 sets, daily range): BP systolic 134–167; BP diastolic 68–90; PULSE 57–87; RESP 4–29; TEMP 36.4–36.9; O2SAT 95–99; BMI 25.0
--- NOTE | 2021-03-29 07:30 | XACV_ITS ---
Exam Room: 2 Ht: 185 cm Wt: 85 kg BSA: 2.10 m2 Gender: Male : 1945 Exam Priority: Routine Procedure(s): Procedure Description: Diagnostic procedure Procedure Description: PCI procedure Procedure Description: Drug Eluting Coronary Stent Procedure Description: PTCA Procedure Description: Miscellaneous Procedure Description: ACT Procedure Description: Coronary Angiography Procedure Description: Pressure Wire Diagnostic Cath Status: Elective Diagnostic Findings * Circumflex has mild luminal irregularities. * Right Coronary Artery has moderate 50% mid stenosis. * INDICATION: Dyspnea on exertion/ abnormal stress test. * LAD has 60 to 70% stenosis in the proximal segment.. * Left Main has no disease. * Coronary angiography shows right dominance. PCI Status: Elective PCI Indication: Other Interventional Findings * Procedure Detail: We engaged left main artery with XB 3.5 guide catheter. IFR wire was used to cross the lesion after normalization in left main artery. An IFR value of 0.84 was obtained that confirmed ischemia. We then proceeded with percutaneous coronary intervention. Lesion was predilated with 2.5 x 12 mm noncompliant balloon. This was followed by placement of 3.0 x 22 mm resolute [place] drug-eluting stent. At this time final angiogram was performed that showed excellent stent expansion, no residual stenosis and GABRIELLA-3 flow. We then turned our attention to mid RCA stenosis. IFR wire was used to cross the lesion. An IFR value of 0.99 was obtained that was nonischemic. At this time IFR wire and guide catheter were removed and patient left the Psychiatric Cns in a stable condition.. * Proximal Left Anterior Descendin% stenosis treated with a AB TREK 2.50X12 RX BALLOON, and MDT R JADA 3.0X22 SUNG. 0% residual stenosis, GABRIELLA: 3 flow. Conclusions 1. Severe proximal LAD stenosis confirmed by IFR value of 0.84. S/p successful revascularization with SUNG x1. 2. Moderate to mid RCA stenosis 3. with nonischemic IFR value of 0.99. Recommendations * Aspirin and Plavix for atleast 1 year. * High intensity statin therapy. * Life style modification advised. * Outpatient cardiology follow up in 4 weeks. Interventional RX Recommendation: PCI w/o planned CABG Diagnostic RX Recommendation: PCI w/o planned CABG Anticoagulation: Heparin Pressures Phase:Rest AO : 112 / 36 ( 71 ) @ 6:55:00 AM 109 / 55 ( 78 ) @ 7:05:00 AM 118 / 54 ( 87 ) @ 7:24:00 AM Clinical Evaluation EBL: 5mL-10mL Procedural Details Procedure Consent Obtained. Pre-Procedure Time Out. Identified patient by full name and date of as verbalized by the patient/guarantor. Does the consent match the physician's order: Yes. Accurate & Complete Informed Consent: Yes. Inpatient/Outpatient History & Physical on Chart: Yes. If H&P is completed, is and addenduem needed: Yes; If yes, is the addendum complete: Yes. Visualize and Verify Site with Patient/Guarantor: N/A. Relevant Radiology Images available: Yes. The risks, benefits, and alternatives of sedation and/or procedure were discussed by physician. The patient agrees to continue. IV Site on Arrival: 20 gauge in the left anticubital. IV Fluids: 0.9% NaCl at KVO. 0 mL infused prior to laborer electroplating. Pre Procedural Pulses: bilateral posterior tibial was 3+. Pre Procedural Pulses: bilateral dorsalis pedis was 2+. Pre Procedural Pulses: bilateral radial was 3+. CSHA Clinical Fraility Score: 3: Managing Well. Psychiatric Cns Indications: Worsening Angina/VAZQUEZ/Abnormal stress test. Chest Pain Symptom Assessment: Typical Angina Symptoms. Cardiovascular Instability: No. Procedure started. Correct patient, site and procedure confirmed by cath team. Oxygen started at 2liters/min via nasal canula. right groin was prepped with chloroprep then draped in the usual sterile fashion. right radial was prepped with chloroprep then draped in the usual sterile fashion. Physician notified. Baseline sample Acquired. HR: 78 BPM. Patient's family waiting in CPRU. Dr. Melo will update at the completion of the procedure. Equipment: 6F - Radial. Cardiac Cath Pack. ACIST Manifold Kit Model BT 2000. Heparinized Saline (2 units/mL), 1000 mL bag. Physician arrived. Dr. Cruz scrubbing with Dr. Melo. Physician scrubbed in. Immediate Pre-Procedure Time Out. Correct Patient: Yes; Correct Procedure: Yes; Correct Site: Yes; Correct Patient Position: Yes; Correct Supplies: Yes; Dried Flammable Prep: Yes; Blood Products Available: N/A;. Lidocaine 1% infiltrated to the right radial. Arterial access obtained by Dr. Cruz. A 5 burmese TIG catheter in over the standard J wire by Dr. Cruz. Multiple views taken of left coronary artery by Dr. Cruz. Catheter redirected to the RCA by Dr. Cruz. Multiple views taken of right coronary artery by Dr. Cruz. Catheter removed over the exchange glidewire by Dr. Cruz. 6 burmese XB 3.5 guide catheter was inserted over the wire. Diagnostic complete, Dr. Cruz out, Dr. Melo stepped in to do intervention. Perry OmniWire Pressure guide wire in. iFR measurements obtained of the Proximal LAD = 0.84. Perry OmniWire Pressure guide wire out. Runthrough guidewire was advanced through the guide catheter. Dr. Cruz scrubbed out. Patient's family updated by Randa Neal RN. Runthrough wire would not cross the lesion in the Prox LAD, wire out. Perry OmniWire Pressure guide wire advanced through the guide catheter to the lesion in the Proximal LAD. Inflation number : 1 A AB TREK 2.50X12 RX BALLOON was prepped and advanced across the Prox LAD , then inflated to 12 ANKITA for 0:23 seconds. Inflation number: 2 The AB TREK 2.50X12 RX BALLOON was reinflated across the Prox LAD, to 12 ANKITA for 0:19 seconds. Balloon out. Inflation Number : 3 Leonora Pepe JADA 3.0X22 SUNG -Lot Number# [id number] was prepped and advanced across the Prox LAD. The stent was deployed at 12 ANKITA for 0:28 seconds. Exp 2023-06-17. Stent balloon out over wire. ACT drawn. Results 282 seconds. Therapeutic limits - pre-heparin administration 90-150 seconds and monitoring heparin during a vascular procedure >250 seconds. Results checked. Perry OmniWire Pressure guide wire out. Results checked. guide catheter out over the exchange glidewire. 6 burmese JR 4 guide catheter was inserted over the wire. Perry OmniWire Pressure guide wire in. iFR measurements obtained of the Mid RCA = 0.99. Perry OmniWire Pressure guide wire out. ACT drawn. Results 259 seconds. Therapeutic limits - pre-heparin administration 90-150 seconds and monitoring heparin during a vascular procedure >250 seconds. Guide catheter out. Dr. Melo scrubbed out to update family in CPRU. TR band placed. Hemostasis obtained. A TR Band was successful obtaining hemostatsis at the Right Radial artery insertion site. Post Procedure: Pulses reassessed and unchanged. PERRLA. Strong, equal hand upper tier bilaterally. No VTE prophylaxis required. Medication's Wasted: Lidocaine 1% = 18 mL. Medication's Wasted: Nitro = 49.6 mg. Medication's Wasted: Heparin = 4000 units. Total IV fluids: 89 mL. PCI Indication: CAD (without ischemic symptoms). Post-op diagnosis: Significant iFR of the Prox/Mid LAD with PTCA and PCI/iFR of the Mid RCA = 0.99. Complications: none. Estimated blood loss: 5mL-10mL. Responsiveness - Normal response to verbal stimuli; alert and oriented, PERRLA. Airway - Unaffected, no intervention required; spontaneous ventilation. Circulation: W/N/L, pulses unchanged. Nausea/Vomiting: No. Procedure completed. Patient transferred by wheelchair to CPRU. Vital chart was stopped. Access Site Site: Right Radial artery Sheath Size: 6 Fr Hemostasis Method: TR Band Hemostasis Success: Successful Procedure Medications Start: 8:36 AM Stop: 8:36 AM Medication: Versed Amount: 1 mg Route: I.V. Start: 8:36 AM Stop: 8:36 AM Medication: Fentanyl Amount: 50 mcg Route: I.V. Start: 8:39 AM Stop: 8:39 AM Medication: Versed Amount: 1 mg Route: I.V. Start: 8:39 AM Stop: 8:39 AM Medication: Fentanyl Amount: 50 mcg Route: I.V. Start: 8:43 AM Stop: 8:43 AM Medication: Nitrogylcerin Amount: 200 mcg Route: I.A. Start: 8:46 AM Stop: 8:46 AM Medication: Heparin Amount: 5000 units Route: I.V. Start: 8:54 AM Stop: 8:54 AM Medication: Heparin Amount: 3000 units Route: I.V. Start: 9:19 AM Stop: 9:19 AM Medication: Heparin Amount: 2000 units Route: I.V. Start: 9:26 AM Stop: 9: AM Medication: Nitrogylcerin Amount: 200 mcg Route: I.C. Start: 9:31 AM Stop: 9:31 AM Medication: Versed Amount: 1 mg Route: I.V. Start: 9: AM Stop: 9: AM Medication: Fentanyl Amount: 50 mcg Route: I.V. Start: 9: AM Stop: 9:31 AM Medication: Heparin Amount: 1000 units Route: I.V. Start: 9:56 AM Stop: 9:56 AM Medication: Plavix Amount: 600 mg Route: P.O. Start: 9:56 AM Stop: 9:56 AM Medication: Aspirin Amount: 325 mg Route: P.O. I, the attending physician, have reviewed and verified all procedure medications. Yes, all medications given per verbal order History/Risk Factors Hypertension: Yes Dyslipidemia: Yes Peripheral Arterial Disease (PAD): No Myocardial Infarction (LA): Yes Obesity: No Renal Disease: No Tobacco Use: Never Prior Interventions PCI: Yes CABG: No Valve Surgery: No Report Signatures Finalized by Sandro Melo MD on 04/10/2021 08:06 PM
[2021-03-29] MEDS: diphenhydrAMINE 50 mg Capsule PO (07:45)
--- NOTE | 2021-03-29 08:36 | W.PM.OPSFHP ---
Same Day Surgery H&P Indication for Procedure/HPI DATE OF PROCEDURE: March 29, 2021 CHIEF COMPLAINT/INDICATIONFOR SURGICAL PROCEDURE: Dyspnea on exertion/ abnormal stress test PREOP DIAGNOSIS: Dyspnea on exertion/abnormal dyspnea on exertion PLANNED PROCEDURE: Operation Date: 03/29/21 08:30 Proposed Procedures p Cardiac Catheterization(Left) - Sandro Melo M.D Possible percutaneous coronary intervention 4-year-old man with past medical history of coronary artery disease with intervention about 10 years ago associated with an CT, dyslipidemia and chronic shortness of breath here for follow-up.? He used to follow with Dr. Crystal in the past.? He had a stress test done on February 10, 2019 which was negative for ischemia. Patient had presented to the office with worsening dyspnea on exertion. He underwent a Lexiscan that showed infarct in the inferior lateral wall with jayna-infarct ischemia that was significant. Plan for left heart cath with possible percutaneous coronary intervention. Medications/Allergies* Home Medications Medication Instructions Recorded Confirmed Type ascorbic acid (vitamin C) 1,000 mg 1 gm PO ONCE tab 02/18/19 03/28/21 History tablet latanoprost 0.005 % eye drops 1 drop OPHTHALMIC (EYE) DAILY 02/18/19 03/28/21 History aspirin 81 mg tablet,delayed 81 mg PO DAILY 04/21/19 03/28/21 History release (Aspir-) omega-3 fatty acids 1,000 mg 1,000 mg PO BID 04/21/19 03/28/21 History capsule (Fish Oil Concentrate) omeprazole 40 mg capsule,delayed 20 mg PO BID 04/21/19 03/28/21 History release vitamin B complex (B 1 tab PO BID 04/21/19 03/28/21 History Complex-Vitamin B12) timolol 0.5 % eye drops 1 drop OPHTHALMIC (EYE) BID 10/23/19 03/29/21 History magnesium 30 mg tablet 30 mg PO DAILY 11/30/19 03/28/21 History cholecalciferol (vitamin D3) 50 50 mcg PO DAILY 02/24/20 03/28/21 History mcg (2,000 unit) capsule ferrous sulfate 325 mg (65 mg 325 mg PO DAILY 11/10/20 03/28/21 History iron) tablet (FeroSul) multivitamin,wj-unqh-enccsuny 1 tab PO BID tab 03/20/21 03/28/21 History (Complete Multivitamin) allopurinol 100 mg tablet 100 mg PO PRN 03/21/21 03/28/21 History brimonidine 0.2 % eye drops 1 drp OPHTHALMIC (EYE) TID 03/21/21 03/28/21 History Allergies/Adverse Reactions Allergy/AdvReac Type Severity Reaction Status Date / Time No Known Allergies Allergy Verified 03/21/21 08:36 Current Medications: Generic Name Dose Route Start Last Admin Trade Name Freq PRN Reason Stop Dose Admin Sodium Chloride 1,000 mls @ 50 mls/hr 03/29/21 07:30 03/29/21 08:07 Sodium Chloride 0.9% IV 03/30/21 03:29 Not Given .Q20H ONE Pertinent History/Comorbid Conditions* Medical History (Updated 03/22/21 @ 00:01 by ) ASHD (arteriosclerotic heart disease) Chronic fatigue GERD (gastroesophageal reflux disease) Hyperlipemia CT, old Renal and ureteric calculus Multi-stone former with small bilateral renal calculi and history of multiple spontaneous stone passages. Surgical History (Updated 04/21/19 @ 15:59 by Lance Crystal MD) H/O percutaneous transluminal coronary angioplasty S/P colonoscopy S/P eye surgery S/P tonsillectomy Family History (Updated 03/15/21 @ 08:25 by Lindsey Martin LPN) Father, AT AGE 89 Mother, AT 88 of unknown cause Mother Diabetes Congestive heart failure Father Stroke Social History Smoking and tobacco status: never smoked Alcohol intake: never Marital status: Current occupational status: employed History of recent travel: No Pertinent Exam Findings alert, oriented x 3, clear to auscultation bilaterally and regular rate & rhythm Conscious Sedation Assessment PATIENT ASSESSED PRIOR TO SEDATION, WITH NO CHANGE NOTED: Yes AIRWAY EVAL/ANESTHESIA PLAN: normal airway, see other exam findings, ASA III, Monitored Anesthesia, Local Anesthesia, Risks, benefits & alternatives of sedation and/or procedure discussed and Patient agrees to continue as planned Recommendations Surgery/Procedure today (Left heart cath with possible percutaneous coronary intervention) Coding Level of Care Code Acute Forensic Psychologist for Edmundo Pryor
--- NOTE | 2021-03-29 10:16 | PC.NURSE ---
Report called to CSU nurse, patient transferred to room 101 by wheelchair by CPRU staff and family.
--- NOTE | 2021-03-29 13:01 | ECG_ITS ---
[facility] Test Date: 2021-03-29 Pat Name: Donald Marquez Department: Room: 101 Gender: Male [employer]: : 1945 Requested By: Sandro Melo Order Number: [id number] Krista MD: Kristen Cruz M.D. Measurements Intervals [place] Rate: 70 P: 33 MT: 167 QRS: -22 QRSD: 114 T: 11 QT: 388 QTc: 419 Interpretive Statements SINUS RHYTHM BORDERLINE LEFT AXIS DEVIATION [QRS AXIS < -20] MODERATE INTRAVENTRICULAR CONDUCTION DELAY [110+ ms QRS DURATION] MINIMAL VOLTAGE CRITERIA FOR LVH, CONSIDER NORMAL VARIANT [MEETS CRITERIA IN ONE OF: R(aVL), S(V1), R(V5), R(V5/V6)+S(V1)] Compared to ECG 03/22/2021 06:39:08 Intraventricular conduction delay now present Electronically Signed On 03-29-2021 14:39:57 [employer] by Kristen Cruz M.D. [id number]
[2021-03-29] MEDS: fentaNYL 50 mcg/mL INJ 2mL 25 MCG IVP (13:16)
[2021-03-29] MEDS: sodium chloride 0.9% 1,000 ML 100 ML IV (22:29)
[2021-03-30] VITALS (8 sets, daily range): BP systolic 130–146; BP diastolic 64–76; PULSE 65–77; RESP 12–20; O2SAT 94–96
[2021-03-30] MEDS: acetaminophen 325 mg Tablet 650 MG PO (00:39)
[2021-03-30 03:08] LABS: Basophils % 0.4 %; Eosinophils # 0.2 10^3/uL (0.0-0.8); Eosinophils % 2.5 %; Hematocrit 32.8 % (42.0-52.0); Hemoglobin 10.7 g/dL (11.7-16.6); Lymphocytes # 1.7 10^3/uL (0.8-4.8); Lymphocytes % 24.3 %; Mean Corpuscular HGB Conc 32.6 g/dL (30.0-36.0); Mean Corpuscular Hemoglobin 30.1 pg (28.0-34.0); Mean Corpuscular Volume 92.1 fl (80-94); Mean Platelet Volume 9.9 fL (7.4-10.4); Monocytes # 0.4 10^3/uL (0.2-0.9); Monocytes % 5.9 %; Neutrophils # 4.71 10^3/uL (1.8-7.7); Neutrophils % 66.3 %; Nucleated Red Blood Cells % 0 %; Platelet Count 185 10^3/cmm (130-400); Red Blood Count 3.56 10^6/uL (4.1-5.3); Red Cell Distribution Width 12.8 % (12.1-15.1); White Blood Count 7.1 10^3/uL (4.0-10.0)
[2021-03-30 03:27] LABS: Anion Gap 13.8 (5-19); Blood Urea Nitrogen 17 mg/dL (8-23); Calcium 9.3 mg/dL (8.5-10.5); Carbon Dioxide 24 mmol/L (22-29); Chloride 106 mmol/L (98-107); Glucose 123 mg/dL (65-115); Osmolality Calculated 293 mOsm/kg (285-295); Potassium 3.8 mmol/L (3.5-5.1); Sodium 140 mmol/L (136-145)
[2021-03-30] MEDS: sodium chloride 0.9% 1,000 ML 100 ML IV (05:25)
--- NOTE | 2021-03-30 07:21 | P.SS_ITS ---
Short Stay Summary Providers Date of Admit/Discharge: 04/10/21 Attending Provider: Sandro Melo M.D Primary Care Provider: Selwyn Wooten MD Chief Complaint: 55911 [id number] HPI History of Present Illness Donald Marquez is a 75 year old male with past medical history of hypertension, coronary artery disease who had presented to the office with worsening dyspnea on exertion. He had abnormal stress test. Plan for coronary angiogram. Review of Systems Const: Denies: fever(s) or chills Eyes: Denies: eye discharge ENMT: Denies: hoarseness Card: Reports: dyspnea on exertion; Denies: chest pain Resp: Reports: dyspnea GI: Reports: abdominal pain and constipation : Reports: urinary urgency; Denies: urinary frequency Musc: Denies: joint redness Skin/Breast: Denies: changes in skin color or jaundice Neuro: Denies: seizure-like activity Psych: Denies: anxiety Endo: Denies: flushing Sivakumar/Lymph: Denies: easy bruising, easy bleeding or enlarged lymph nodes All/Imm: Denies: urticaria or acute wheezing Home Meds/Allergies Home Medications and Allergies Home Medications Medication Instructions Recorded Confirmed Type ascorbic acid (vitamin C) 1,000 mg 1 gm PO ONCE tab 02/18/19 03/28/21 History tablet latanoprost 0.005 % eye drops 1 drop OPHTHALMIC (EYE) DAILY 02/18/19 03/28/21 History aspirin 81 mg tablet,delayed 81 mg PO DAILY 04/21/19 03/28/21 History release (Aspir-) omega-3 fatty acids 1,000 mg 1,000 mg PO BID 04/21/19 03/28/21 History capsule (Fish Oil Concentrate) omeprazole 40 mg capsule,delayed 20 mg PO BID 04/21/19 03/28/21 History release vitamin B complex (B 1 tab PO BID 04/21/19 03/28/21 History Complex-Vitamin B12) timolol 0.5 % eye drops 1 drop OPHTHALMIC (EYE) BID 10/23/19 03/29/21 History magnesium 30 mg tablet 30 mg PO DAILY 11/30/19 03/28/21 History cholecalciferol (vitamin D3) 50 50 mcg PO DAILY 02/24/20 03/28/21 History mcg (2,000 unit) capsule ferrous sulfate 325 mg (65 mg 325 mg PO DAILY 11/10/20 03/28/21 History iron) tablet (FeroSul) multivitamin,[id number] 1 tab PO BID tab 03/20/21 03/28/21 History (Complete Multivitamin) allopurinol 100 mg tablet 100 mg PO PRN 03/21/21 03/28/21 History brimonidine 0.2 % eye drops 1 drp OPHTHALMIC (EYE) TID 03/21/21 03/28/21 History Allergies Allergy/AdvReac Type Severity Reaction Status Date / Time No Known Allergies Allergy Verified 03/21/21 08:36 PFSH Acute PFSH: Medical History ASHD (arteriosclerotic heart disease) Chronic fatigue GERD (gastroesophageal reflux disease) Hyperlipemia [place], old Renal and ureteric calculus Multi-stone former with small bilateral renal calculi and history of multiple spontaneous stone passages. Surgical History H/O percutaneous transluminal coronary angioplasty S/P colonoscopy S/P eye surgery S/P tonsillectomy Family History Father , AT AGE 89 Congestive heart failure Mother , AT 88 of unknown cause Other Diabetes Stroke Social History Smoking and tobacco status: never smoked Alcohol intake: never Marital status: Current occupational status: employed History of recent travel: No Vitals/I&O/Wt Last Vital Signs Temp 97.7 F 03/29/21 23:11 Pulse 67 03/30/21 06:00 Resp 17 03/30/21 06:00 BP 136/64 03/30/21 06:00 Pulse Ox 94 03/30/21 06:00 03/29/21 03/30/21 03/30/21 22:59 06:59 14:59 Intake Total 240 / 480 693.333 / 1173.333 Output Total 350 / 675 500 / 1175 Balance -110 / -195 193.333 / -1.667 Weight last 48 hrs Weight 190 lb Weight 190 lb Physical Exam Narrative: GENERAL: Patient is alert, awake and oriented x3. [] NECK: No jugular vein distension. [] HEENT: No cyanosis. No icterus. No pallor. [] HEART: Regular S1 and S2. No murmur, rub or gallop. [] LUNGS: Clear to auscultate bilaterally. [] ABDOMEN: Soft, nontender and nondistended. Positive bowel sounds. No guarding, rebound or tenderness. [] CENTRAL NERVOUS SYSTEM: Grossly nonfocal. [] EXTREMITIES: Lower extremities with no edema bilaterally. Pulses palpable in the lower extremities, both dorsalis pedis and posterior tibial. [] Hospital Course Hospital Course Donald Marquez is a 75 year old male with past medical history of hypertension, coronary artery disease who had presented to the office with worsening dyspnea on exertion. He had abnormal stress test. He underwent coronary angiogram yesterday that showed moderate LAD stenosis. IFR was significant showing it was severe stenosis with a value of 0.84. He underwent successful revascularization with SUNG x1. Patient stayed in the hospital overnight and was stable for discharge today. 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 Routin e Exams 03/29/21 07:30 Taken Procedures Performed: Left heart cath/ Percutaneous coronary intervention Discharge Plan Discharge Patient Disposition: Home Condition: Stable Prescriptions: New clopidogrel 75 mg tablet 75 mg PO DAILY Qty: 90 2RF Continued aspirin [Aspir-81] 81 mg tablet,delayed release (DR/EC) 81 mg PO DAILY 0RF omeprazole 40 mg capsule,delayed release(DR/EC) 20 mg PO BID 0RF omega-3 fatty acids [Fish Oil Concentrate] 1,000 mg capsule 1,000 mg PO BID 0RF vitamin B complex [B Complex-Vitamin B12] Tablet 1 tab PO BID 0RF Complete Multivitamin Tablet 1 tab PO BID 0RF latanoprost 0.005 % drops 1 drop ophthalmic (eye) DAILY 0RF ascorbic acid (vitamin C) 1,000 mg tablet 1 gm PO ONCE 0RF timolol 0.5 % drops 1 drop ophthalmic (eye) BID 0RF cholecalciferol (vitamin D3) 50 mcg (2,000 unit) capsule 50 mcg PO DAILY 0RF ferrous sulfate [FeroSul] 325 mg (65 mg iron) tablet 325 mg PO DAILY 0RF atorvastatin 40 mg tablet 40 mg PO ONCE Qty: 90 3RF amlodipine 10 mg tablet 10 mg PO DAILY Qty: 90 3RF naproxen [Naprosyn] 500 mg tablet 500 mg PO BID PRN (Reason: pain) Qty: 20 0RF brimonidine 0.2 % Drops 1 drp OPHTHALMIC (EYE) TID 0RF Rx Instructions: administer approximately 8 hours apart allopurinol 100 mg tablet 100 mg PO PRN 0RF magnesium 30 mg Tablet 30 mg PO DAILY 0RF Discharge Orders: Discharge Order (Routine); Ordered 03/30/21 Ordered By: Sandro Melo Referrals: Sandro Melo M.D [Physician] - 05/12/21 9:15 am Leanne Hernandez FNP [Nurse Practitioner] - 04/06/21 8:45 am Discharge Diet: Cardiac Discharge Activity: Increase activity as tolerated Patient Instructions: Clopidogrel (By mouth) (Plavix), Coronary Angioplasty (DC), Coronary Intravascular Stent Placement (DC), Opioid Safety, Post Angiogram Home Care Instructions Activity Restrictions/Additional Instructions: Please do not lift more than 5 pounds of weight for the next 5 days Attestations Medical Necessity Statement*: Care not expected to cross 2 midnights. Patient had PCI of LAD yesterday. 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
== END 2021-03-30 09:15 | disposition home or self-care (01) ==
LOC: CSU 10:29
PROVIDERS: Admitting Provider Internal Medicine; PCP Internal Medicine; Visit Provider Internal Medicine
DX: R94.39 Abnormal result of other cardiovascular function study (principal); R06.00 Dyspnea, unspecified; I25.10 Atherosclerotic heart disease of native coronary artery without angina pectoris; I25.2 Old myocardial infarction; E78.5 Hyperlipidemia, unspecified; Z79.82 Long term (current) use of aspirin; Z82.49 Family history of ischemic heart disease and other diseases of the circulatory system; I10 Essential (primary) hypertension
CPT/HCPCS: 36415; 80048; 85025; 85347; 93005; 93454; 93571; 93572; C1725; C1769; C1874; C1887; C1894; C9600; G0378; J1644; J2250; J3010; J3490; J7030; Q0163; Q9967

== ENCOUNTER → 2021-04-11 08:10 | Outpatient (BNVA) | payer MEDICARE, OTHER, SELFPAY | PROVIDERS: PCP Internal Medicine; Visit Provider Urology | DX: N20.2 Calculus of kidney with calculus of ureter (principal); Z96.0 Presence of urogenital implants | CPT/HCPCS: 81003 ==

== ENCOUNTER → 2021-04-12 11:03 | Outpatient (BNVA) | payer MEDICARE, OTHER, SELFPAY | PROVIDERS: PCP Internal Medicine; Visit Provider Nurse Practitioner Family | DX: Z96.0 Presence of urogenital implants (principal); N39.9 Disorder of urinary system, unspecified; N20.0 Calculus of kidney | CPT/HCPCS: 87086 ==

== ENCOUNTER → 2021-05-12 09:20 | Outpatient (BNVA) | payer MEDICARE, OTHER, SELFPAY | PROVIDERS: PCP Internal Medicine; Visit Provider Internal Medicine | DX: I25.10 Atherosclerotic heart disease of native coronary artery without angina pectoris (principal); E78.5 Hyperlipidemia, unspecified; R53.82 Chronic fatigue, unspecified; I10 Essential (primary) hypertension; R06.02 Shortness of breath; Z79.82 Long term (current) use of aspirin | CPT/HCPCS: 99214 ==

== ENCOUNTER 2021-06-29 10:20 | Outpatient (CLI) | payer MEDICARE, OTHER, SELFPAY ==
--- NOTE | 2021-06-29 11:00 | USCV_ITS ---
Richardmahogany Donald Age: 75 Gender: M : 1945 Exam Date: 06/29/2021 10:37 Ordering Phys: Sandro Melo M.D ([email or web address]) Technologist: Exam Location[place] [facility] [place]: cad BP: 122 / 62 HR: 68 Rhythm: Sinus Technical Quality: Good MEASUREMENTS (Male / Female) Normal Values 2D ECHO LV Diastolic Diameter PLAX 3.5 cm 4.2 - 5.9 / 3.9 - 5.3 cm LV Systolic Diameter PLAX 2.1 cm IVS Diastolic Thickness 0.9 cm 0.6 - 1.0 / 0.6 - 0.9 cm IVS Systolic Thickness 1.1 cm LVPW Diastolic Thickness 0.9 cm 0.6 - 1.0 / 0.6 - 0.9 cm LVPW Systolic Thickness 1.5 cm LVOT Diameter 2.2 cm LV Ejection Fraction 2D Teich 71.7 % LV Ejection Fraction MOD 2C 76.7 % LV Ejection Fraction 2C AL 77.1 % LA Diameter 4.6 cm Aorta at Sinotubular Diameter 3.1 cm IVC Diameter 1.8 cm M-MODE Aortic Annulus Diameter 3.6 cm LA Ao Ratio MM 1.4 MV E Point Septal Separation 1.5 cm DOPPLER AV Peak Velocity 136.0 cm/s LVOT Peak Velocity 110.0 cm/s AV Area Cont Eq vti 2.8 cm squared AV Area Cont Eq pk 3.1 cm squared MV Area PHT 5.0 cm squared Mitral E to A Ratio 0.8 MV E' Velocity 42.5 cm/s Mitral E to MV E' Ratio 7.3 Mitral E to LV E' Lateral Ratio 6.3 Mitral E to LV E' Septal Ratio 8.7 TR Peak Velocity 282.7 cm/s TR Peak Gradient 32.0 mmHg TV Peak E Velocity 98.0 cm/s Right Atrial Pressure 3.0 mmHg Pulmonary Artery Systolic Pressu 35.0 mmHg PV Peak Velocity 104.0 cm/s FINDINGS Left Ventricle Normal left ventricular size. LV systolic function is normal with EF of 55-60%. No regional wall motion abnormalities. Normal diastolic filling pattern. Right Ventricle The right ventricle is normal in size and function. Right Atrium The right atrium is normal in size. Left Atrium The left atrium is enlarged Mitral Valve Structurally normal mitral valve without significant stenosis or prolapse. There is no mitral regurgitation. Aortic Valve Structurally normal aortic valve without significant sclerosis or stenosis. There is no aortic regurgitation. Tricuspid Valve Structurally normal tricuspid valve without significant stenosis. Mild tricupsid regurgitation. RVSP is 30-35% Pulmonic Valve Structurally normal pulmonic valve without significant stenosis. There is no pulmonic regurgitation. Pericardium Normal pericardium without effusion. Aorta Normal ascending aorta dimension. IVC CONCLUSIONS LV systolic function is normal with EF of 55-60% Normal diastolic function Mild tricuspid regurgitation Left atrial enlargement Compared to prior echocardiogram from 05/12/2020, no significant changes are seen Sandro Melo MD (Electronically Signed) Final Date: 08 Jul 2021 23:38 S
== END 2021-06-29 10:21 | disposition home or self-care (01) ==
PROVIDERS: PCP Internal Medicine; Visit Provider Internal Medicine
DX: I07.1 Rheumatic tricuspid insufficiency (principal); R06.02 Shortness of breath
CPT/HCPCS: 93306

== ENCOUNTER 2021-10-10 09:10 | Outpatient (CLI) | payer MEDICARE, OTHER, SELFPAY ==
--- NOTE | 2021-10-10 09:29 | XR_ITS ---
WS: [id number] Exam: XR KUB [id number] Date/Time of Exam: 10/10/2021 9:30 AM Reason For Exam: RENAL URETERIC CALCULUS Comparison 03/20/2021. No bowel obstruction or free air. No sign of organ enlargement. Abdominal and pelvic calcifications a re noted which are nonspecific but unchanged since prior study. Mild levoscoliosis of the lumbar spin e. Moderate amount stool in the right colon. XR/XR KUB [id number] IMPRESSION: 1. No acute abdominal process. 2. Nonspecific abdominal and pelvic calcifications.
== END 2021-10-10 09:11 | disposition home or self-care (01) ==
PROVIDERS: PCP Internal Medicine; Visit Provider Urology
DX: N20.2 Calculus of kidney with calculus of ureter (principal)
CPT/HCPCS: 74018; 81003; 99213

== ENCOUNTER → 2021-11-13 13:52 | Outpatient (BNVA) | payer MEDICARE, OTHER, SELFPAY | PROVIDERS: PCP Internal Medicine; Visit Provider Internal Medicine | DX: I25.10 Atherosclerotic heart disease of native coronary artery without angina pectoris (principal); E78.5 Hyperlipidemia, unspecified; R53.82 Chronic fatigue, unspecified; I10 Essential (primary) hypertension; Z87.891 Personal history of nicotine dependence | CPT/HCPCS: 99214 ==

== ENCOUNTER → 2021-12-28 09:11 | Outpatient (BNVA) | payer MEDICARE, OTHER, SELFPAY | PROVIDERS: PCP Internal Medicine; Visit Provider Podiatrist Foot & Ankle Surgery | DX: G57.61 Lesion of plantar nerve, right lower limb (principal); M21.6X1 Other acquired deformities of right foot; L60.0 Ingrowing nail | CPT/HCPCS: 73630; 99204 ==

== ENCOUNTER → 2022-01-30 09:42 | Outpatient (BNVA) | payer MEDICARE, OTHER, SELFPAY | PROVIDERS: PCP Internal Medicine; Visit Provider Podiatrist Foot & Ankle Surgery | DX: L60.0 Ingrowing nail (principal); G57.61 Lesion of plantar nerve, right lower limb; M21.6X1 Other acquired deformities of right foot | CPT/HCPCS: 11750; A6219 ==

== ENCOUNTER → 2022-02-09 09:31 | Outpatient (BNVA) | payer MEDICARE, OTHER, SELFPAY | PROVIDERS: PCP Internal Medicine; Visit Provider Podiatrist Foot & Ankle Surgery | DX: G57.61 Lesion of plantar nerve, right lower limb (principal); M21.6X1 Other acquired deformities of right foot; L60.0 Ingrowing nail | CPT/HCPCS: 99213 ==

== ENCOUNTER → 2022-02-26 12:52 | Outpatient (BNVA) | payer MEDICARE, OTHER, SELFPAY | PROVIDERS: PCP Internal Medicine; Visit Provider Podiatrist Foot & Ankle Surgery | DX: L60.0 Ingrowing nail (principal) | CPT/HCPCS: 99213 ==

== ENCOUNTER → 2022-11-01 12:36 | Outpatient (BNVA) | payer MEDICARE, OTHER, SELFPAY | PROVIDERS: PCP Internal Medicine; Visit Provider Internal Medicine | DX: I25.10 Atherosclerotic heart disease of native coronary artery without angina pectoris (principal); E78.5 Hyperlipidemia, unspecified; R53.82 Chronic fatigue, unspecified; I10 Essential (primary) hypertension; Z87.891 Personal history of nicotine dependence; I25.2 Old myocardial infarction | CPT/HCPCS: 99214 ==

== ENCOUNTER → 2023-08-01 15:15 | Outpatient (BNVA) | payer MEDICARE, OTHER, SELFPAY | PROVIDERS: PCP Internal Medicine; Visit Provider Internal Medicine Cardiovascular Disease | DX: I25.10 Atherosclerotic heart disease of native coronary artery without angina pectoris (principal); I10 Essential (primary) hypertension | CPT/HCPCS: 99213 ==

== ENCOUNTER 2023-09-23 09:13 | Oncology outpatient (recurring) (ONCR) | payer OTHER, MEDICARE, SELFPAY ==
[2023-09-23 10:17] LABS: Basophils % 0.7 %; Eosinophils # 0.1 10^3/uL (0.0-0.8); Eosinophils % 2.3 %; Hematocrit 35.2 % (37-53); Lymphocytes % 23.8 %; Mean Corpuscular HGB Conc 33.5 g/dL (30-55); Mean Corpuscular Hemoglobin 31.4 pg (27-33); Mean Corpuscular Volume 93.6 fl (82-101); Mean Platelet Volume 10.6 fL (7.4-10.4); Monocytes # 0.2 10^3/uL (0.2-0.9); Monocytes % 5.5 %; Neutrophils # 2.92 10^3/uL (1.8-7.7); Neutrophils % 67.5 %; Nucleated Red Blood Cells % 0 %; Platelet Count 127 10^3/cmm (157-399); Red Blood Count 3.76 10^6/uL (3.85-5.65); Red Cell Distribution Width 13.3 % (12.1-15.1); White Blood Count 4.33 10^3/uL (3.29-11.43)
[2023-09-23 10:23] LABS: Erythrocyte Sedimentation Rate < 1 mm/hr (0-10)
[2023-09-23 10:33] LABS: Alanine Aminotransferase 13 U/L (0-41); Albumin Level 4.2 g/dL (3.5-5.2); Alkaline Phosphatase 60 U/L (40-130); Anion Gap 11.9 (5-19); Aspartate Amino Transferase 14 U/L (0-40); Blood Urea Nitrogen 13 mg/dL (8-23); Calcium 9.1 mg/dL (8.5-10.5); Carbon Dioxide 27 mmol/L (22-29); Chloride 108 mmol/L (98-107); Creatinine Clr Calc Pharmacy 83.6307; Ferritin 562 ng/mL (30-400); Globulin 1.7 g/dL (1.3-4.6); Glucose 104 mg/dL (65-115); Iron 74 ug/dL (59-158); LAB Peripheral Smear Sent for Review; Osmolality Calculated 296 mOsm/kg (285-295); Percent Saturation 38.9 % (20-50); Potassium 3.9 mmol/L (3.5-5.1); Sodium 143 mmol/L (136-145); Total Bilirubin 0.5 mg/dL (0.15-1.2); Total Iron Binding Capacity 190 mcg/dl; Total Protein 5.9 g/dL (6.6-8.7); Unsaturated Iron Binding 116 ug/dL (112-347)
== END 2023-10-12 23:55 | disposition home or self-care (01) ==
LOC: ONCMED 09:13
PROVIDERS: PCP Internal Medicine; Visit Provider Internal Medicine Medical Oncology
DX: R79.89 Other specified abnormal findings of blood chemistry (principal)
CPT/HCPCS: 36415; 80053; 81256; 82728; 83540; 83550; 85025; 85651; 86140; 99204

== ENCOUNTER 2023-10-16 14:07 | Outpatient (CLI) | payer OTHER, SELFPAY ==
--- NOTE | 2023-10-16 15:15 | CT_ITS ---
WS: [id number] CT CHEST, ABDOMEN AND PELVIS WITH CONTRAST HISTORY: unintentional weight loss TECHNIQUE: Contiguous 5 mm axial imaging performed through the chest, abdomen and pelvis with IV cont rast, oral contrast has been provided. Coronal and sagittal reformats chest. Coronal and sagittal ref ormats through the abdomen and pelvis. All CT scans at [facility] use at least one of these d ose optimization techniques: automated exposure control; mA and/or kV adjustment per patient size (in cludes targeted exams where dose is matched to clinical indication); or iterative reconstruction. CONTRAST: Omnipaque 350; 100 mL IV. DLP: 611.22 mGy.cm COMPARISON: Noncontrast CT 03/13/[address]: Advanced centrilobular emphysema. Peripheral interstitial thickening with mild bronchial wa ll thickening. Mild bronchiectasis RIGHT lower lobe. No dense consolidation or pneumonia. No mass or nodule. Normal size thoracic aorta and pulmonary artery. There are a few small mediastinal and hilar lymph nodes which are not pathologic. Mild enlargement of the heart. No pericardial or pleural effusi ons. Small hiatal hernia. Mild increase in thoracic kyphosis. Abdomen CT: Normal size liver. Gallbladder is present with stones. No acute cholecystitis. No adrenal mass. Normal size spleen. Well-circumscribed low-attenuation mass in the spleen has been noted on pr ior examination with increase in size since 2019. Splenic lesion measures 1.6 x 1.7 cm. Low-attenuati on mass in the pancreas just distal to the pancreatic neck measures 0.9 x 0.9 cm. Not noted on prior studies but those studies were performed without IV contrast. Pancreatic duct is not dilated. There i s probably an additional 0.3 cm lesion in the distal pancreatic tail. Bilateral renal atrophy and cortical thinning. Hyperdense mass from the lateral RIGHT kidney measures 1.4 x 2.0 cm with increased Hounsfield units. This mass was also present on prior studies including 03/13/2021. Hounsfield is are also elevated at that time. This is probably a hemorrhagic cyst. Several small cysts from the lower pole LEFT kidney. Abdominal aortic aneurysm measures 3.4 x 3.4 cm. Stomach is moderately distended with food products and contrast. No small bowel obstruction. Mild dif fuse constipation. Advanced diverticular burden in the distal colon. No acute diverticulitis. Pelvic CT: No free fluid or adenopathy. Mild prostate enlargement. Negative urinary bladder. Bladder is only slightly distended. No destructive bone lesions. No osteoblastic or osteolytic disease. CT/CT chest abdpel w/*[id number] IMPRESSION: 1. Progression of pulmonary fibrosis since 01/07/2019. No pneumonia or mass id entified. 2. No adenopathy identified in the chest, abdomen or pelvis. 3. There are 2 pancreatic lesions that need continued follow-up. The largest 0 .9 x 0.9 cm in the pancreas just distal to the neck. Differential includes luci y pancreatic neoplasm or IPMN. There is a smaller 0.3 cm lesion more distally. Consider further evaluation by MRI at this time. Otherwise recommend follow-up pancreatic CT mass protocol by CT in 3 months. 4. Diffuse constipation but no mass identified. 5. Advanced diverticular burden in the distal colon without acute diverticulit is. 6. No ascites. 7. Bilateral renal masses. The most concerning mass is in the RIGHT kidney sai suring 1.4 x 2.0 cm. This mass was included on prior CT on 03/13/2021. At that t padilla this is suspicious for a hemorrhagic mass. This can be further evaluated at the time of the pancreatic follow-up. I suspect this is probably a hemorrhagic cyst. 8. Slight enlargement of the splenic mass which has been previously described and very nonspecific in appearance. This may be a small hemangioma or cyst. 9. Abdominal aortic aneurysm, 3.4 x 3.4 cm. 10. Cholelithiasis without acute cholecystitis.
[2023-10-16] MEDS: iohexol 350 mg/mL 500 mL Btl (per mL) PO (15:45)
[2023-10-16] MEDS: iohexol 350 mg/mL 500 mL Btl (per mL) IV (15:45)
== END 2023-10-16 14:08 | disposition home or self-care (01) ==
PROVIDERS: PCP Internal Medicine; Visit Provider Internal Medicine Medical Oncology
DX: R63.4 Abnormal weight loss (principal); J84.10 Pulmonary fibrosis, unspecified; K86.89 Other specified diseases of pancreas; K59.00 Constipation, unspecified; K57.90 Diverticulosis of intestine, part unspecified, without perforation or abscess without bleeding; D30.01 Benign neoplasm of right kidney; I71.40 Abdominal aortic aneurysm, without rupture, unspecified; K80.20 Calculus of gallbladder without cholecystitis without obstruction
CPT/HCPCS: 71260; 74177

== ENCOUNTER 2023-11-21 08:24 | Outpatient (CLI) | payer OTHER, SELFPAY ==
--- NOTE | 2023-11-21 08:45 | MR_ITS ---
WS: [id number] MRI ABDOMEN WITH AND WITHOUT CONTRAST. COMPARISON: 10/16/2023 Multiplanar, multisequence imaging is performed with and without contrast. MultiHance 15 mL. Liver: Normal size liver. On the out of phase imaging there is mild diffuse loss of signal suggesting hepatic steatosis. No bile duct dilatation or mass is identified within the liver. Some of the seque nces are compromised by significant breathing artifact. No cyst or solid mass. Normal common bile ellen t. Gallbladder: Well-distended gallbladder with no adjacent inflammation. Several stones are noted withi n the gallbladder and a few stones extend into the gallbladder neck. Pancreas: Normal size pancreas. Only 1 cystic pancreatic lesion is identified by MRI. Cystic mass sai sures 12 x 8 mm just distal to the pancreatic neck. This does appear to connect or closely associated with the pancreatic duct. There is no enhancement of this pancreatic lesion. Spleen: Normal size spleen. Reidentified is the well-circumscribed mass in the inferior spleen measur ing 15 mm. This does not enhance on the postcontrast imaging. Benign cyst. Adrenal glands: Very slight splaying of the LEFT adrenal limbs. I suspect there could be a very small adrenal myelolipoma. There is no enhancement. RIGHT adrenal is negative. RIGHT kidney: Mild atrophy. Exophytic well-circumscribed intermediate signal mass in the from the mid RIGHT kidney measures 13 x 20 mm. This mass has been previously described without increase in size o n multiple prior CTs. On postcontrast imaging this mass does not enhance. No enhancing masses in the RIGHT kidney. No obstruction. LEFT kidney: Mild atrophy, kidney measures 8.2 cm in length. Several exophytic cysts from the LEFT ki dney. The largest from the lower pole measures 19 x 19 mm. No no enhancing masses. Abdominal aorta: 3.3 cm aneurysm. No periaortic inflammation or hemorrhage. No ascites or adenopathy. No pleural effusions. MR/MR abdomen wo/w con* [id number] IMPRESSION: 1. Mild diffuse hepatic steatosis. 2. Cholelithiasis without acute cholecystitis. 3. Nonenhancing cystic mass pancreatic body measures 12 x 8 mm. Favor IPMN or benign pancreatic cyst. No additional cyst identified. Pancreatic cyst can be r eevaluated yearly by MRI with contrast. 4. Nonenhancing splenic cyst versus pseudocyst. 5. Bilateral renal masses. There are no enhancing masses. Combination of cysts and hemorrhagic cysts. 6. Mild renal atrophy. 7. Abdominal aortic aneurysm 3.3 cm.
[2023-11-21] MEDS: gadobenate dimeglumine 20 mL vial 15 ML IV (09:09)
== END 2023-11-21 08:25 | disposition home or self-care (01) ==
LOC: RAD 08:24
PROVIDERS: PCP Internal Medicine; Visit Provider Internal Medicine Medical Oncology
DX: K80.20 Calculus of gallbladder without cholecystitis without obstruction (principal); R79.89 Other specified abnormal findings of blood chemistry; K76.0 Fatty (change of) liver, not elsewhere classified; I71.40 Abdominal aortic aneurysm, without rupture, unspecified; N26.1 Atrophy of kidney (terminal)
CPT/HCPCS: 74183; A9577

== ENCOUNTER → 2023-12-17 08:05 | Outpatient (BNVA) | payer MEDICARE, OTHER, SELFPAY | PROVIDERS: PCP Internal Medicine; Visit Provider Podiatrist Foot & Ankle Surgery | DX: G62.9 Polyneuropathy, unspecified (principal) | CPT/HCPCS: 99213 ==

== ENCOUNTER 2023-12-19 08:55 | Oncology outpatient (recurring) (ONCR) | payer MEDICARE, OTHER, SELFPAY ==
[2023-12-19 10:37] LABS: Basophils % 0.7 %; Eosinophils # 0.1 10^3/uL (0.0-0.8); Hematocrit 37.8 % (37-53); Lymphocytes # 1.5 10^3/uL (0.8-4.8); Lymphocytes % 27.5 %; Mean Corpuscular HGB Conc 33.3 g/dL (30-55); Mean Corpuscular Hemoglobin 31.3 pg (27-33); Mean Corpuscular Volume 93.8 fl (82-101); Mean Platelet Volume 9.9 fL (7.4-10.4); Monocytes # 0.4 10^3/uL (0.2-0.9); Monocytes % 6.4 %; Neutrophils # 3.47 10^3/uL (1.8-7.7); Nucleated Red Blood Cells % 0 %; Platelet Count 145 10^3/cmm (157-399); Red Blood Count 4.03 10^6/uL (3.85-5.65); Red Cell Distribution Width 13.2 % (12.1-15.1)
[2023-12-19 10:40] LABS: Erythrocyte Sedimentation Rate < 1 mm/hr (0-10)
[2023-12-19 10:51] LABS: Alanine Aminotransferase 16 U/L (0-41); Albumin Level 4.4 g/dL (3.5-5.2); Alkaline Phosphatase 63 U/L (40-130); Anion Gap 9.3 (5-19); Aspartate Amino Transferase 15 U/L (0-40); Blood Urea Nitrogen 16 mg/dL (8-23); Calcium 9.2 mg/dL (8.5-10.5); Carbon Dioxide 30 mmol/L (22-29); Chloride 107 mmol/L (98-107); Ferritin 694 ng/mL (30-400); Globulin 1.1 g/dL (1.3-4.6); Glucose 109 mg/dL (65-115); Iron 85 ug/dL (59-158); Lactate Dehydrogenase 132 U/L (135-225); Osmolality Calculated 296 mOsm/kg (285-295); Percent Saturation 41.6 % (20-50); Potassium 4.3 mmol/L (3.5-5.1); Sodium 142 mmol/L (136-145); Total Bilirubin 0.5 mg/dL (0.15-1.2); Total Iron Binding Capacity 204 mcg/dl; Total Protein 5.5 g/dL (6.6-8.7); Unsaturated Iron Binding 119 ug/dL (112-347)
== END 2024-01-11 23:59 | disposition home or self-care (01) ==
PROVIDERS: Internal Medicine; PCP Internal Medicine; Visit Provider Internal Medicine Medical Oncology
DX: R79.89 Other specified abnormal findings of blood chemistry (principal); R63.4 Abnormal weight loss
CPT/HCPCS: 80053; 82728; 83540; 83550; 83615; 85025; 85651; 86140; 99213

== ENCOUNTER → 2024-01-30 13:29 | Outpatient (BNVA) | payer MEDICARE, OTHER, SELFPAY | PROVIDERS: PCP Internal Medicine; Referring Provider Podiatrist Foot & Ankle Surgery; Visit Provider Specialist | DX: G62.89 Other specified polyneuropathies; G62.9 Polyneuropathy, unspecified | CPT/HCPCS: 95910 ==

== ENCOUNTER → 2024-02-11 09:56 | Outpatient (BNVA) | payer MEDICARE, OTHER, SELFPAY | PROVIDERS: PCP Internal Medicine; Visit Provider Podiatrist Foot & Ankle Surgery | DX: G62.9 Polyneuropathy, unspecified (principal) | CPT/HCPCS: 99212 ==

== ENCOUNTER 2024-06-18 11:07 | Oncology outpatient (recurring) (ONCR) | payer MEDICARE, OTHER, SELFPAY ==
[2024-06-18 12:22] LABS: Basophils % 0.4 %; Eosinophils # 0.1 10^3/uL (0.0-0.8); Eosinophils % 1.5 %; Hematocrit 38.9 % (37-53); Lymphocytes # 1.3 10^3/uL (0.8-4.8); Lymphocytes % 25.9 %; Mean Corpuscular HGB Conc 33.4 g/dL (30-55); Mean Corpuscular Hemoglobin 31.3 pg (27-33); Mean Corpuscular Volume 93.7 fl (82-101); Mean Platelet Volume 10.1 fL (7.4-10.4); Monocytes # 0.2 10^3/uL (0.2-0.9); Monocytes % 4.6 %; Neutrophils # 3.25 10^3/uL (1.8-7.7); Neutrophils % 67.4 %; Nucleated Red Blood Cells % 0 %; Platelet Count 146 10^3/cmm (157-399); Red Blood Count 4.15 10^6/uL (3.85-5.65); Red Cell Distribution Width 13.1 % (12.1-15.1); White Blood Count 4.82 10^3/uL (3.29-11.43)
[2024-06-18 12:32] LABS: Alanine Aminotransferase 14 U/L (0-41); Albumin Level 4.4 g/dL (3.5-5.2); Alkaline Phosphatase 66 U/L (40-130); Anion Gap 14.6 (5-19); Aspartate Amino Transferase 15 U/L (0-40); Blood Urea Nitrogen 19 mg/dL (8-23); Calcium 9.4 mg/dL (8.5-10.5); Carbon Dioxide 27 mmol/L (22-29); Chloride 106 mmol/L (98-107); Creatinine Clr Calc Pharmacy 76.0744; Ferritin 701 ng/mL (30-400); Glucose 113 mg/dL (65-115); Iron 114 ug/dL (59-158); Lactate Dehydrogenase 133 U/L (135-225); Osmolality Calculated 299 mOsm/kg (285-295); Percent Saturation 54.2 % (20-50); Potassium 4.6 mmol/L (3.5-5.1); Sodium 143 mmol/L (136-145); Total Bilirubin 0.6 mg/dL (0.15-1.2); Total Iron Binding Capacity 210 mcg/dl; Total Protein 6.4 g/dL (6.6-8.7); Unsaturated Iron Binding 96 ug/dL (112-347)
== END 2024-07-11 23:59 | disposition home or self-care (01) ==
PROVIDERS: PCP Internal Medicine; Visit Provider Internal Medicine
DX: R79.89 Other specified abnormal findings of blood chemistry (principal); R63.4 Abnormal weight loss
CPT/HCPCS: 36415; 80053; 82728; 83540; 83550; 83615; 85025; 86140; 99213